=== PATIENT | female | born 1955 | race Caucasian/White ===

== ENCOUNTER 2017-06-03 15:00 | Outpatient (RCR) | payer OTHER, SELFPAY ==
--- NOTE | 2017-04-06 13:56 | HP.PTEVAL ---
Patient's Visit Information VAIBHAV MONTANA is a 61 year old F referred to Physical Therapy by MD PRASHANT Manzo with a diagnosis of RIGHT SHOULDER PAIN/IMPINGMENT. Date of Evaluation: 04/06/17 Physical Therapist: Luann Green - Visit Plan Frequency: 2-3x /Week Duration: 4-6 Weeks Plan: RIGHT SHOULDER US, E-STIM AND STM ALONG WITH ROM, STRETCHING AND STRENGTHENING. POSTURE CORRECTION/STRENGTHENING. 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 WILL BE BABYSITTING GRANDCHILDREN AGES 18 MONTHS TO 6 YEARS ONCE A MONTHS OUT OF STATE FOR ABOUT 24 HOURS. HAS A NEW PUPPY. SWIMS BETWEEN 20 AND 40 LAPS A DAY IN THE SUMMER - ABLE TO DO IT LAST SUMMER. ALSO BIKE RIDES IN THE SUMMER 30 MILES A WEEK IN THE SUMMER. JOINED [employer] - [employer] ROUTINE. ABLE TO DO ALL THIS UNTIL RAKED THE LEAVES ABOUT 6 WEEKS AGO. Disability: NO. Present symptoms: FRONT OF THE RIGHT SHOULDER AND SOMETIMES ON TOP OF THE SHOULDER. PATIENT REPORTS INTERMITTENT BREIF EPISODES OF PAIN, NUMBNESS AND TINGLING THAT RADIATES DOWN THE BICEPS, INTO THE FOREARM AND LITTLE FINGER. RIGHT NECK PAIN INTO SHOULDER BLADE. Present since: ABOUT 3 YEARS AGO THE RIGHT ANTERIOR SHOULDER PAIN STARTED. THE PAIN IN HER RIGHT NECK, SHOULDER BLADE AND ON TOP OF THE SHOULDER WHICH STARTED ABOUT 6 WEEKS AGO. Pain Scale: WORST 5/10, LEAST 0/10. Currently: 3/10 RIGHT ANTERIOR SHOULDER AND SHOULDER BLADE. Commenced as a result of: LIFTED A 6 PACK OF BEER AND SWUNG IT UP TO PUT IT IN A TRUCK AND IT HIT LOWER UNEXPECTEDLY AND DAVID HER ARM. RAKING LEAVES EXCESSIVELY 6 WEEKS AGO IS WHAT CAUSED THE RIGHT NECK AND SHOULDER BLADE PAIN TO START. Symptoms at onset: ON TOP OF THE RIGHT SHOULER AT ONSET 6 WEEKS AGO. PRIOR INCIDENT 3 YEARS AGO PAIN STARTED IN ANTERIOR RIGHT SHOULDER. Worse: HORIZONTAL ABD/ADD, REACHING UP, TWISTING AND TURNING, SLEEPING, PICKING UP SOMETHING HEAVY, USING IT TO PULL HERSELF UP FROM THE FLOOR, REACHING BEHIND HER. INCREASED PAIN IN THE MORNINGS. Better: ABOLISHES WITH TYLONOL, SELF MASSAGE HELPS, COLD PACK. GETS BETTER THE DAY GOES ON. Disturbed sleep: NO. Previous history/Previous treatment: PATIENT REPORTS THAT PRIOR TO 6 WEEKS AGO SHE HAS NOT HAD HER SHOULDER LOOKED AT OR TREATED BY ANYONE. CONCUSSION ABOUT 5 YEARS AGO - A CEILING TILE FELL ON HEAD - MYOFASCIAL SESSIONS X 4-6 FOR TREATMENT. SEVERE TIGHTNESS AND PAIN ABOUT 10 YEARS AGO - A ROUND OF TREATMENTS WITH CHIROPRACTOR. STATES SHE WAS DROPPING THINGS AND THAT LEAD HER TO GET NECK TREATMENT TOO. NECK GOT BETTER. HISTORY OF PAIN IN HEAD AND HEADACHES. DIFFICULTY SWOLLOWING - NO, DIZZINESS - NO, TINNITIS - POSITIVE, NAUSEA - NO. Gait: NORMAL. Accidents: CEILING TILE FELL ON PATIENTS HEAD. Unexplained weight loss: NO. Imaging: X-RAY OF RIGHT SHOULER - DR. GOMEZ - SAID SHOULDER IS OK AND TO CONT IBUPROFEN NEEDED AND FOLLOW UP WITH PT. ARTHRITIC CHANGES. NO NECK IMAGING. PMH: HYSTERECTOMY ABOUT 6 YEARS AGO, HEARD OF HEARING - HEARING AIDS, HERNIA REPAIR, HIGH CHOLESTEROL, OSTEOPENIA. JARED CARPAL TUNNEL SYNDROME. OTHER: EXTREME INCREASE IN AMOUNT OF TYPING FROM OCT 2016 TO FEB 2017. HAS BEEN OFF FOR A MONTH AND NOW BACK TO WORK (WORKING 40 HOURS A WEEK INCLUDING HOME WORK) AND SHOULDERS ARE TIGHTENING UP AGAIN. DID SOME SNOW SHOVELING YESTERDAY. ALSO HELPED MOVE SOME FURNITURE. FEELING TIGHT TODAY. LEFT HAND DOMINANT. - Objective Sitting Posture: POOR - VERY SLOUCHED. Standing Posture: POOR. FORWARD HEAD AND ROUNDED SHOULDERS. NO TORTICOLLIS. Active Correction of posture: BETTER. Other Observations: THIS PATIENT AMBULATES INDEP'LY INTO PT WITH NO GROSS DEVIATIONS NOTED AND NO ASSISTIVE DEVICES. SHE IS PLEASANT AND COOPERATIVE TO WORK WITH. SHE HAS DIFFICULTY HEARING ME AT TIMES AND STATES SHE FORGOT HER HEARING AIDS. Motor deficit: LEFT UE STRENGTH 5/5 WITH MMT EXCEPT ABD WHICH IS 4/5. MMT RIGHT UE: SHOULDER FLEX - 3-/5, ABD 3-/5, IR 4/5, ER - 3-/5, ELBOW FLEX 5/5, ELBOW EXT 5/5. Sensory deficit: JARED UE LIGHT TOUCH IS INTACT AND SYMMETRICAL. ROM deficit: DECREASED RIGHT SHOULDER ROM ALL PLANES: PASSIVE FLEX 145 DEG, ABD 140 DEG, IR 40 DEG, ER 20 DEG. PATIENT HAS PAIN WITH RIGHT SHOULDER ROM TESTING ALL PLANES. Reflexes: JARED UE'S 2/2. Dural Signs: NEGATIVE JARED UE DURAL SIGNS. CERVICAL MVMT LOSS: FLEX - NIL, PRO - NIL, RET - MOD, EXT - MOD, JARED ROT - MIN, JARED SB - MOD. PATIENT HAS C/O RIGHT NECK PAIN WITH RETRACTION AND RIGHT SB ROM TESTING. POSTURAL STRENGTH: POOR. Palpation: TENDERNESS WITH PALPATION AROUND THE RIGHT ACROMIUM AND UPPER ARM LATERALLY. - Goals Goal 1:: DECREASE C/O RIGHT NECK, SHOULDER, FOREARM AND HAND SX'S. Goal Time Frame: 4-6 Weeks Goal 2:: IMPROVE REACHING, PUSHING, PULLING, WORK, LEISURE AND LIFTING FUNCTION. Goal Time Frame: 4-6 Weeks Goal 3:: INDEP HEP Goal Time Frame: 4-6 Weeks - Rehabilitation Potential Rehabilitation Potential: Good - Anticipated Interventions Patient/Client Instruction: Educate patient on: Condition, Plan of Care, Risk Factors, Benefits of Fitness Program For the Purpose of:: To improve self management Therapeutic Exercise to Include: Strength training, Body mechanics, Postural training, Flexibilty training, Scapular Strength/Stabilization For the Purpose of:: To improve ability of physical actions for home/community/work/leisure Manual Therapy Techniques to Include: Soft tissue mobilization For the Purpose of:: To decrease pain, To decrease swelling/inflammation, To increase ROM TENS: Yes IF ES: Yes Cryotherapy (ice pack, ice massage): Yes Thermo therapy (hot pack): Yes Ultrasound (thermal/non thermal): Yes For the Purpose of:: To decrease pain, To decrease swelling/inflammation, To increase ROM Thank you for the opportunity to evaluate your patient. For Medicare and Medicare HMO plans, please review the plan of care and approve it. It will need to be FAXED BACK to us at [phone] for Medicare purposes. Please let me know if there are questions or concerns regarding this plan of care. Physician Signature: Date:
--- NOTE | 2017-05-02 11:57 | HP.PTREVAL_ITS ---
Guzman Siddiqui MD, It has been my pleasure to treat VAIBHAV MONTANA over the last 11 visits for RIGHT SHOULDER PAIN/IMPINGMENT. Please see the progress note below for an update on the physical therapy plan of care! Subjective: PATIENT REPORTS SHE STILL HAS TWINGES OF PAIN IN HER RIGHT ANTERIOR SHOULDER BUT IT HAS IMPROVED. ABOUT 30% IMPROVEMENT. ABLE TO REACH UP BETTER AND FEELS BETTER AFTER PT APPOINTMENTS AND DOING HER HEP. PATIENT REPORTS SHE LIKES THE THERAPY AND IT HAS HELPED BUT SHE WANTS TO MAKE SURE THERE ISN'T SOMETHING ELSE GOING ON IN HER SHOULDER. HASN'T TAKEN HER ANTIINFLAMMATORIES REGULARLY AND HASN'T GONE BACK TO [facility] FOR RE-CHECK. SHE HAS BEEN AVOIDING REACHING OVER-HEAD AND INDEP EX AT [employer]. Objective/Function: PATIENT IS IMPROVING WITH THER-EX AND ACTIVITY MODIFICATIONS BUT SHE STILL HAS SIGNIFICANT PAIN, WEAKNESS AND DECREASED ROM IN THE RIGHT SHOULDER. RECOMMND CONTINUED PT AND PHYSICIAN FOLLOW UP FOR POSSIBLE ORTHO CONSULT AND MRI. UPON EXAM TODAY: Motor deficit: LEFT UE STRENGTH 5/5 WITH MMT EXCEPT ABD WHICH IS 4/5. MMT RIGHT UE: SHOULDER FLEX - 3-/5, ABD 3-/5 , IR 4/5, ER - 3-/5, ELBOW FLEX 5/5, ELBOW EXT 5/5. Sensory deficit: JAERD UE LIGHT TOUCH IS INTACT AND SYMMETRICAL. ROM deficit: DECREASED RIGHT SHOULDER ROM ALL PLANES BUT SOME IMPROVEMENT: PASSIVE FLEX 160 DEG, ABD 140 DEG, IR 40 DEG, ER 28 DEG. PATIENT HAS PAIN WITH RIGHT SHOULDER ROM TESTING ALL PLANES. Reflexes: JARED UE'S 2/2. Dural Signs: NEGATIVE JARED UE DURAL SIGNS. CERVICAL MVMT LOSS: FLEX - NIL, PRO - NIL, RET - MOD, EXT - MOD, JARED ROT - MIN, JARED SB - MOD. PATIENT DENIES PAIN WITH CERVICAL ROM TESTING TODAY. POSTURAL STRENGTH : POOR. Palpation: TENDERNESS WITH PALPATION AROUND THE RIGHT ACROMIUM AND UPPER ARM LATERALLY AND ANTERIOR SHOULDER JOINT. Plan Plan: CONTINUE PT 3X'S A WEEK X 3-4 WEEKS FOR RIGHT SHOULDER US, E-STIM AND STM ALONG WITH ROM, STRETCHING AND STRENGTHENING. POSTURE CORRECTION/STRENGTHENING. Goals Goal 1:: DECREASE C/O RIGHT NECK, SHOULDER, FOREARM AND HAND SX'S. Goal Time Frame: 4-6 Weeks Goal 2:: IMPROVE REACHING, PUSHING, PULLING, WORK, LEISURE AND LIFTING FUNCTION. Goal Time Frame: 4-6 Weeks Goal 3:: INDEP HEP Goal Time Frame: 4-6 Weeks Anticipated Interventions Patient/Client Instruction: Educate patient on: Condition, Plan of Care, Risk Factors, Benefits of Fitness Program For the Purpose of:: To improve self management Therapeutic Exercise to Include: Strength training, Body mechanics, Postural training, Flexibilty training, Scapular Strength/Stabilization For the Purpose of:: To improve ability of physical actions for home/community/ work/leisure Manual Therapy Techniques to Include: Soft tissue mobilization For the Purpose of:: To decrease pain, To decrease swelling/inflammation, To increase ROM TENS: Yes IF ES: Yes Cryotherapy (ice pack, ice massage): Yes Thermo therapy (hot pack): Yes Ultrasound (thermal/non thermal): Yes For the Purpose of:: To decrease pain, To decrease swelling/inflammation, To increase ROM Please do not hesitate to contact me at [phone] by phone or Fax: if you have questions or concerns regarding this new plan of care! Sincerely, Luann Green
--- NOTE | 2017-06-03 15:55 | HP.PTDCSUM_ITS ---
HP - PT D/C Summary It has been my pleasure to treat VAIBHAV MONTANA under orders from Guzman Siddiqui MD, for the diagnosis of RIGHT SHOULDER PAIN/IMPINGMENT for a total of 19 visit(s). Discharge Date: Please see the following information for a summary of their discharge status. - Subjective Subjective: STATES HER SHOULDER IS STILL GETTING BETTER. SHE IS GOING TO GO AHEAD AND SEE DR. VAZ NEXT TUESDAY. NO MRI YET. FEELS SHE MIGHT BENEFIT FROM MORE PT. PATIENT REPORTS HER ROM IS BETTER AND AT NIGHT IT DOESN'T HAVE THAT HORRIBLE ACHING ANYMORE. IT IS MORE FLUID WITH MVMT SHE ALSO REPORTS THERE IS TOTAL ABSENCE OF PAIN AT TIMES. CERTAIN TWISTING MOTIONS AND REACHING BEHIND HER CAUSES PAIN. SHE REPORTS PUTTING COAT ON AND REACHING IN THE BACK SEAT CAUSES THE SHOULDER TO PULL. SCOOPING PUPPY UP ALSO HURTS. SHE REPORTS THE EX'S HELP A LOT. PATIENT REPORTS HER ARM HASN'T FELT THIS GOOD SINCE JANUARY (RAKING LEAVES). - Pain RIGHT SHOULDER Pain Intensity (Out of 10): 1 - Overall Improvement % Improvement: 80 - Objective Objective/Function: PATIENT IS IMPROVING WITH THER-EX AND ACTIVITY MODIFICATIONS BUT SHE STILL HAS PAIN, WEAKNESS AND DECREASED ROM IN THE RIGHT SHOULDER. UPON EXAM TODAY: Motor deficit: LEFT UE STRENGTH 5/5 WITH MMT EXCEPT ABD WHICH IS 4/5. MMT RIGHT UE: SHOULDER FLEX 3-/5, ABD 3-/5, IR 4/5, ER 3-/5, ELBOW FLEX 5/5, ELBOW EXT 5/5. Sensory deficit: JARED UE LIGHT TOUCH IS INTACT AND SYMMETRICAL. ROM deficit: DECREASED RIGHT SHOULDER ROM ALL PLANES BUT SOME IMPROVEMENT: PASSIVE FLEX 170 DEG, ABD 170 DEG, IR 45 DEG, ER 30 DEG. PATIENT HAS PAIN WITH RIGHT SHOULDER ROM TESTING ALL PLANES AT THE END OF THE AVAILABLE RANGE AND ON RETURN ONCE PAIN IS PROVOKED. Reflexes: JARED UE' S 2/2. Dural Signs: NEGATIVE JARED UE DURAL SIGNS. CERVICAL MVMT LOSS: FLEX - NIL, PRO - NIL, RET - MOD, EXT - MOD, JARED ROT - MIN, JARED SB - MOD. PATIENT DENIES PAIN WITH CERVICAL ROM TESTING. Palpation: TENDERNESS WITH PALPATION AROUND THE RIGHT ACROMIUM AND UPPER ARM LATERALLY AND ANTERIOR SHOULDER JOINT. RECOMMEND ORTHO CONSULT AND POSSIBLE MRI. - Goals Goal 1:: DECREASE C/O RIGHT NECK, SHOULDER, FOREARM AND HAND SX'S. Goal Progress: Progressing Goal 2:: IMPROVE REACHING, PUSHING, PULLING, WORK, LEISURE AND LIFTING FUNCTION. Goal Progress: Progressing Goal 3:: INDEP HEP Goal Progress: Progressing - Plan Plan: WILL D/C PATIENT AT THIS TIME TO HEP BUT IF PATIENT IS NOT A SURGICAL CANDIDATE SHE MAY BENEFIT FROM FURTHER PT. PATIENT IS AGREEABLE TO D/C WITH HEP AT THIS TIME. - D/C Information If there are questions or concerns regarding this patient's physical therapy, please feel free to call me at [phone]. Thank you for the referral of this patient. Sincerely, Luann Green
== END 2017-06-03 19:00 | disposition home or self-care (01) ==
LOC: PT 15:00
PROVIDERS: Family Provider Family Medicine; PCP Family Medicine; Visit Provider Family Medicine
DX: M75.41 Impingement syndrome of right shoulder (principal)
CPT/HCPCS: 97035; 97110; 97140; 97162; 97530

== ENCOUNTER → 2017-06-10 18:18 | Outpatient (CLI) | payer OTHER, SELFPAY | PROVIDERS: Family Provider Family Medicine; PCP Family Medicine; Visit Provider Family Medicine | DX: R35.0 Frequency of micturition (principal) | CPT/HCPCS: 87077; 87086; 87088; 87186 ==

== ENCOUNTER → 2017-06-23 10:18 | Outpatient (CLI) | payer OTHER, SELFPAY ==
--- NOTE | 2017-06-23 10:28 | MRI_ITS ---
STUDY: MRI RIGHT SHOULDER REASON FOR EXAM: Female, 61 years old. Shoulder pain x6 months. TECHNIQUE: Standardized fat and water weighted pulse sequences were obtained in all 3 orthogonal planes. COMPARISON: X-RAY RIGHT SHOULDER-March 10, 2017 FINDINGS: There is a focal high-grade bursal surface tear of the footplate insertion of the anterior leading edge of the supraspinatus tendon which may be a full-thickness tear extending to the cortex however there is no retraction of the supraspinatus tendon (axial proton density fat sat series 2, image 10; coronal proton density fat sat series 4, image 14; coronal T2 fat sat series 5, image 14). This small focal tendon tear measures 8 x 7 mm (mediolateral x AP). The remaining anterior, central posterior aspect of the supraspinatus tendon remains intact. There are punctate hypointense structures within the focal supraspinatus tendon tear. The x-ray examination of March 10, 2017 demonstrated jordan-like calcifications. The findings are consistent with a calcific tendinitis associated with a focal tendon tear. There is an associated subacromial bursitis. Normal infraspinatus tendon. Normal subscapularis tendon. Normal teres minor tendon. Normal supraspinatus muscle. Normal infraspinatus muscle. Normal subscapularis muscle. Normal teres minor muscle. Normal glenohumeral articulation. There is a cortical erosion at the insertion of the infraspinatus tendon. Normal biceps labral complex. Normal intracapsular long biceps tendon. Normal labrum. Normal capsulo- ligamentous complex. Normal rotator interval. There is hypertrophic osteoarthritis of the acromioclavicular articulation which is mildly impinging upon the musculotendinous junction of the supraspinatus muscle (coronal T2 fat sat series 5, image 13). There is a Type II morphology (curved), with a neutral orientation. Normal visualized coracohumeral and coracoacromial ligaments. Normal quadrilateral space. Normal axillary space. Normal deltoid muscle. Normal trapezius muscle. MRI/Upper Ext Joint Only(Routine) IMPRESSION: 1. Focal intratendinous calcific tendinitis with a high-grade focal bursal surface tear of the supraspinatus tendon which may represent a non retracted full-thickness tear. See above for discussion. 2. Mild subacromial bursitis. 3. 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 Electronically Signed: Bo Patel DO at 12:19 EDT Tel , Service support ,
== END ==
PROVIDERS: Family Provider Family Medicine; PCP Family Medicine; Visit Provider Orthopaedic Surgery
DX: S43.431A Superior glenoid labrum lesion of right shoulder, initial encounter (principal); X58.XXXA Exposure to other specified factors, initial encounter; M75.41 Impingement syndrome of right shoulder; M75.51 Bursitis of right shoulder; M19.011 Primary osteoarthritis, right shoulder
CPT/HCPCS: 73221

== ENCOUNTER 2017-07-11 07:58 | Outpatient (RCR) | payer OTHER, SELFPAY ==
--- NOTE | 2017-07-11 08:53 | HP.PTEVAL_ITS ---
Patient's Visit Information VAIBHAV MONTANA is a 61 year old F referred to Physical Therapy by Eda Hay DO with a diagnosis of Right shoulder. Date of Evaluation: 07/11/17 Physical Therapist: Cheryl Valero - Visit Plan Frequency: 1x/Week Duration: 4 Weeks Plan: 1x visit for HEP- will follow up in 4 weeks if neeeded - Subjective Subjective: Patient reports that after therapy she was feeling better- but went back to MD- MRI which showed RTC tear, bursitis and tendonitis- gave injections last . MD wants her to get stronger. Worst: 1/10 Agg: cross body, or picking up something heavy. Eases: exercises, Aleve Best: 0/10. Pain is located in the bicipital groove and anterior shoulder. Sometimes it radiates to the neck and the deltoid. Has carpal tunnel and drops things but its not new. No dizziness, vomitting, blurred vision. Sleep: not disturbed- can be stiff in the AM. Left hand dominate. PMHs/Meds: no change since last visit. - Objective Posture: FH, RS. ROM: WFL in all planes of cerivcal and right UE. Palpation: tender along upper trap to the tip of the acromion, and bicipital groove. Strength: Elbow/Wrist/hand: 5/5, Shoulder: flexion: 4-/5, Abd: 4-/5, Extn: 4/5, IR/ER at neutral: 4/5. Empty Can: positive, Impingment: positive - Goals Goal 1:: Patient will be I with HEP and progression Goal Time Frame: 4-6 Weeks - Rehabilitation Potential Physical Therapy Diagnosis: Patient presents with hypomobility- she has decreased strength and muscular endurance Rehabilitation Potential: Good - Anticipated Interventions Patient/Client Instruction: Educate patient on: Benefits of Fitness Program For the Purpose of:: To increase tolerance to activity/condition/position Thank you for the opportunity to evaluate your patient. For Medicare and Medicare HMO plans, please review the plan of care and approve it. It will need to be FAXED BACK to us at [phone] for Medicare purposes. Please let me know if there are questions or concerns regarding this plan of care. Physician Signature: Date:
--- NOTE | 2017-08-15 14:02 | HP.PTDCSUM ---
HP - PT D/C Summary It has been my pleasure to treat VAIBHAV MONTANA under orders from Eda Hay DO, for the diagnosis of Right shoulder for a total of 1 visit(s). Discharge Date: Please see the following information for a summary of their discharge status. - Goals Goal 1:: Patient will be I with HEP and progression - Plan Plan: 1x visit for HEP- will follow up in 4 weeks if neeeded - D/C Information If there are questions or concerns regarding this patient's physical therapy, please feel free to call me at [phone]. Thank you for the referral of this patient. Sincerely, Cheryl Valero
== END 2017-07-11 19:00 | disposition home or self-care (01) ==
LOC: PT 07:58
PROVIDERS: Family Provider Family Medicine; PCP Family Medicine; Visit Provider Orthopaedic Surgery
DX: M75.101 Unspecified rotator cuff tear or rupture of right shoulder, not specified as traumatic (principal); M75.21 Bicipital tendinitis, right shoulder
CPT/HCPCS: 97110; 97161

== ENCOUNTER → 2017-09-27 14:34 | Outpatient (CLI) | payer OTHER, SELFPAY ==
[2017-10-04 09:13] LABS: HPV Reflexed? NOT INDICATED
== END ==
PROVIDERS: Family Provider Family Medicine; PCP Family Medicine; Visit Provider Family Medicine
DX: Z12.4 Encounter for screening for malignant neoplasm of cervix (principal)
CPT/HCPCS: 88175; G0145

== ENCOUNTER → 2017-10-25 07:05 | Outpatient (CLI) | payer OTHER, SELFPAY ==
--- NOTE | 2017-10-25 07:12 | BI_ITS ---
MAMMOGRAPHY - BILATERAL SCREENING REASON FOR EXAM: Female, 62 years old. Routine annual screening examination. PERTINENT HISTORY: Grandmother with breast cancer. TECHNIQUE: Digital bilateral breast suyapa (3D mammographic acquisition) in the CC and MLO projections. 2-D mediolateral oblique (MLO) and craniocaudad (CC) views of both breasts were obtained. CAD: Full Field Digital Mammography with Computer Added Detection was performed. COMPARISON: Comparison is made with prior study dated April 20, 2016 and January 02, 2015. FINDINGS: Breast Composition: The breasts are heterogeneously dense, which may obscure small masses. There are no dominant masses or suspicious calcifications. Stable benign-appearing bilateral axillary lymph nodes. No other significant abnormalities are identified. There has been no significant change since the prior study. BI/SCREENING MAMM (CAD), BILAT IMPRESSION: Stable bilateral screening mammogram. Yearly follow-up mammogram recommended. (A) ASSESSMENT CATEGORY: BIRADS Category 2: Benign. A letter regarding these results will be sent to the patient by the facility within 30 days. Approximately 10% of breast cancers are not detected by mammography. A normal mammogram should not delay biopsy of a clinically suspicious abnormality. [id number] Electronically Signed: Victor Hugo Rogers MD at 10:03 EDT Tel [phone], Service support ,
== END ==
PROVIDERS: Family Provider Family Medicine; PCP Family Medicine; Visit Provider Family Medicine
DX: Z12.31 Encounter for screening mammogram for malignant neoplasm of breast (principal)
CPT/HCPCS: 77063; 77067

== ENCOUNTER 2017-12-05 17:59 | Emergency (ER) | payer OTHER, SELFPAY ==
[2017-12-05 18:00] VITALS: BP 130/79; PULSE 77; RESP 16; TEMP 36.9; O2SAT 94; BMI 35.6
--- NOTE | 2017-12-05 19:00 | RAD_ITS ---
STUDY: X-RAY - PELVIS AND RIGHT HIP REASON FOR EXAM: Female, 62 years old. Right hip tenderness after fall this morning. TECHNIQUE: Radiological exam, hip, unilateral, with pelvis when performed; 2 or 3 views. COMPARISON: None. FINDINGS: There is a non-specific bowel gas pattern. Normal visualized soft tissue structures. There are multiple calcified phleboliths. Normal bilateral iliac wings, sacroiliac joints and visualized sacrum. Normal bilateral superior and inferior pubic rami. Normal pubic symphysis. Normal bilateral ischial tuberosities. Normal visualized right femoral head. Normal right acetabulum. Normal right hip joint. RAD/HIP, UNI W/ Pelvis 2-3 Views IMPRESSION: Normal x-ray examination of the pelvis and right hip. Electronically Signed: Carlos Phillips DO at 19:31 EDT Tel [phone], Service support ,
--- NOTE | 2017-12-05 19:00 | RAD_ITS ---
STUDY: X-RAY - RIGHT KNEE REASON FOR EXAM: Female, 62 years old. Pain and swelling after fall this morning. TECHNIQUE: 3 view(s) of the knee. COMPARISON: None. FINDINGS: Normal visualized distal femur. Normal visualized proximal tibia and fibula. Normal proximal tibiofibular articulation. There is no acute fracture, dislocation or destructive osseous pathology. Normal medial femorotibial compartment. Normal lateral femorotibial compartment. Normal patellofemoral articulation. There is no demonstrated joint effusion. The soft tissue structures are unremarkable. RAD/Knee 3 Views IMPRESSION: Normal x-ray examination of the knee. Electronically Signed: Carlos Phillips DO at 19:30 EDT Tel [phone], Service support ,
--- NOTE | 2017-12-05 20:19 | ED.DCSUM_ITS ---
- ER Visit Summary Date of Service: 12/05/17 Chief Complaint: [Injury right leg] History of Present Illness: The patient is a 62 F [presents the emergency department after sustaining a fall earlier today while walking down a ramp that was wet. Patient states that her legs gave out and she fell injuring her right hip and right knee. Patient states that this is work-related and will be filed under workman's comp. Patient denies strike her head. She denies loss of consciousness. She denies any chest or back pain.] Physical Examination: [HEENT-PERRLA, EOMI. Cranial nerves II through XII grossly intact. TMs clear. Mucous membranes moist. No adenopathy. Cardiovascular-regular rate and rhythm without murmur or ectopy Lungs-clear to auscultation, chest wall stable without crepitus or subcu emphysema Abdomen-normoactive bowel sounds, soft, nontender, no rebound or rigidity, no peritoneal signs. Extremities-intact ?4, normal range of motion, normal pulses, atraumatic]. Right hip-patient has mild tenderness palpation. There is no obvious deformity. No external rotation or shortening of the extremity noted. Right knee-no significant effusion noted she has some superficial abrasions noted. No ecchymosis or bruising noted. Ligamentously stable. Neurovascular intact. Test Results: [X-rays of the right hip and pelvis as well as right knee obtained were negative for fractures.] Emergency Department Course and Treatment: [Patient will be given an Tevin wrap and work restrictions.] Treatment Plan: [Patient will take ibuprofen or Aleve at home and does not want a prescription for anything for pain. She is instructed to use ice to the area. ] Disposition: [Discharged home in stable condition] Impression: [Contusion/sprain right hip and right knee] This note was generated with [employer] dictation software. It may contain incorrect words, spelling, and punctuation that were not noted in review of the chart prior to signing ED Disposition - Plan for ED Patient: Chief Complaint: Lower Extremity Injury Referrals: Marissa Vargas MD [Primary Care Provider] -
--- NOTE | 2017-12-05 20:19 | ED.DEP ---
ED Disposition - Plan for ED Patient: Chief Complaint: Lower Extremity Injury Instructions: ED Sprain Knee, ED Sprain Hip Referrals: Marissa Vargas MD [Primary Care Provider] - [facility] PHYSIC[facility]] - 3-5 Days
[2017-12-05 20:32] VITALS: RESP 18
== END 2017-12-05 20:33 | disposition home or self-care (01) ==
LOC: ED 19:33
PROVIDERS: Emergency Provider Emergency Medicine; Family Provider Family Medicine; PCP Family Medicine
DX: S83.91XA Sprain of unspecified site of right knee, initial encounter (principal); S73.101A Unspecified sprain of right hip, initial encounter; S80.01XA Contusion of right knee, initial encounter; S70.01XA Contusion of right hip, initial encounter; W18.39XA Other fall on same level, initial encounter; Y93.01 Activity, walking, marching and hiking; Y92.9 Unspecified place or not applicable; Y99.0 Civilian activity done for income or pay; E78.00 Pure hypercholesterolemia, unspecified
CPT/HCPCS: 73502; 73562; 99282

== ENCOUNTER 2018-09-25 09:36 | Outpatient (RCR) | payer OTHER, SELFPAY ==
[2018-09-12 09:45] VITALS: BMI 35.6
--- NOTE | 2018-09-25 10:34 | HP.PTEVAL ---
Patient's Visit Information VAIBHAV MONTANA is a 63 year old F referred to Physical Therapy by PUJA Dutton with a diagnosis of RTC Impingment. Date of Evaluation: 09/25/18 Physical Therapist: Cheryl Valero DPT - Visit Plan Frequency: 1x/Week Duration: 2 Months Plan: HEP given for posture- will attempt HEP and follow up in 4-6 weeks - Subjective Findings: 3 weeks ago swimming 20 laps 3-4x a week and lifting bricks and the Right shoulder started hurting her in the biceps area. She went to see Erik the PA who gave her a cortisone injection. Reports that since the cortisone injection she has had a clicking sensation and just something weird. Worst in the last 48 hours 2/10 Best:0/10. Left hand dominate. Has had shoulder problems about 2 years ago and had an injection and PT and felt good. Sleep: if she wakes up it bothers her a little bit when she sleeps on it but it does not wake her up. Describes the pain irritated or aggravated- ache in the biceps- sometimes does radiate to the anterior deltoid but not past the elbow. No N/T in the hands. No neck pain, COLON, blurred vision or dizziness. Has not done exercise for her shoulders since the accident 2 years ago. Had an x-ray but no MRI. 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 PMHx/Meds: no changes since she saw . - Objective Posture: FH, RS, increased kyphosis. Gait: no deviation noted- good arm swing and trunk rotation. Palpation: tender along bicipital groove, upper trap and down the anterior deltoid. ROM: Elbow/Wrist/hand: wnl Shoulder: WNL in all planes pain with end range IR. Strength: Elbow/Wrist/hand: 4+/5, Shoulder: flexion/abd: 4-/5, IR/ER: 4/5 at neutral extn: 4+/5 Scap: fair minus. Special Test: impingment: positive, Empty Can: positive - Goals Goal 1:: Patient will be I with HEP and progression Goal Time Frame: 6-8 Weeks - Rehabilitation Potential Physical Therapy Diagnosis: Patient presents with hypomobility- she has decreased painfree ROM, strength and muscular endurance leading to poor posture and increased pain with ADL's. Rehabilitation Potential: Good - Anticipated Interventions Patient/Client Instruction: Educate patient on: Benefits of Fitness Program Therapeutic Exercise to Include: Strength training, Endurance training, Body mechanics, Postural training, Passive ROM, Active ROM, Scapular Strength/Stabilization For the Purpose of:: To improve muscle performance and motor function Thank you for the opportunity to evaluate your patient. For Medicare and Medicare HMO plans, please review the plan of care and approve it. It will need to be FAXED BACK to us at [phone] for Medicare purposes. For Medicare only, by signing this I certify the plan of care. Please let me know if there are questions or concerns regarding this plan of care. Physician Signature: Date:
--- NOTE | 2018-11-28 14:31 | HP.PTDCNRP_ITS ---
HP - Discharge Summary (1) - Patient Information VAIBHAV MONTANA was seen in my office for initial evaluation on 09/25/18. The following Plan of Care was established for this patient: Initial Frequency: 1x/Week Initial Duration: 2 Months - Anticipated Interventions Patient/Client Instruction: Educate patient on: Benefits of Fitness Program Therapeutic Exercise to Include: Strength training, Endurance training, Body me chanics, Postural training, Passive ROM, Active ROM, Scapular Strength/Stabilization For the Purpose of:: To improve muscle performance and motor function This patient was last seen in our office . Pertinent comments regarding their Physical therapy will appear below: Patient has not attended PT in over 6 weeks and is appropriate for d/c and to return to MD for further evaluation as needed. At this point I will be discontinuing this patient from physical therapy. I would be happy to see this patient again in the future if found appropriate by the physician. Thank you! KARLA AlonzoT
== END 2018-09-25 19:00 | disposition home or self-care (01) ==
LOC: PT 09:36
PROVIDERS: Family Provider Family Medicine; PCP Family Medicine; Referring Provider Physician Assistant; Visit Provider Physician Assistant
DX: M75.21 Bicipital tendinitis, right shoulder (principal); M75.52 Bursitis of left shoulder
CPT/HCPCS: 97110; 97161

== ENCOUNTER → 2018-09-29 10:50 | Outpatient (CLI) | payer OTHER, SELFPAY ==
[2018-09-12 09:45] VITALS: BMI 35.6
[2018-09-29 13:28] LABS: AST(SGOT) 13 U/L (15-37); Alanine Aminotransfer ALT/SGPT 35 U/L (13-56); Anion Gap 9 (5-15); BUN 15 mg/dL (7-18); BUN/Creat Ratio 16.3 RATIO (10-20); Calcium,Total 9.2 mg/dL (8.5-10.1); Chloride 108 mmol/L (98-107); Cholesterol 170 mg/dL (200); Creatinine, Serum 0.92 mg/dL (0.55-1.02); EST Glomerular Filtration Rate 66 mL/min (>60); Est Glom Filt Rate - Afr Amer 79 mL/min (>60); Glucose 109 mg/dL (74-106); High Density Lipoprotein 78 mg/dL; Potassium 4.2 mmol/L (3.5-5.1); Sodium Level 142 mmol/L (136-145); Triglycerides 61 mg/dL; Very Low Density Lipoprotein 12 mg/dL (5-40)
[2018-09-29 13:54] LABS: Hemoglobin A1c 6.5 % (4.2-6.3)
== END ==
PROVIDERS: Family Provider Family Medicine; PCP Family Medicine; Visit Provider Family Medicine
DX: E78.00 Pure hypercholesterolemia, unspecified (principal); Z83.3 Family history of diabetes mellitus
CPT/HCPCS: 36415; 80048; 80061; 83036; 84450; 84460

== ENCOUNTER → 2018-09-29 12:28 | Outpatient (CLI) | payer OTHER, SELFPAY ==
[2018-09-12 09:45] VITALS: BMI 35.6
[2018-10-04 17:14] LABS: HPV Reflexed? NOT INDICATED
== END ==
PROVIDERS: Family Provider Family Medicine; PCP Family Medicine; Referring Provider Family Medicine; Visit Provider Family Medicine
DX: Z12.4 Encounter for screening for malignant neoplasm of cervix (principal)
CPT/HCPCS: 88175; G0145

== ENCOUNTER → 2018-11-01 | Outpatient (CLI) | payer OTHER, SELFPAY ==
[2018-09-12 09:45] VITALS: BMI 35.6
--- NOTE | 2018-11-01 06:58 | BI_ITS ---
MAMMOGRAPHY - BILATERAL SCREENING REASON FOR EXAM: Female, 63 years old. Routine annual screening examination. PERTINENT HISTORY: Grandmother with breast cancer. TECHNIQUE: Digital bilateral breast suyapa (3D mammographic acquisition) in the CC and MLO projections. 2-D mediolateral oblique (MLO) and craniocaudad (CC) views of both breasts were obtained. CAD: Full Field Digital Mammography with Computer Added Detection was performed. COMPARISON: Comparison is made with prior study dated October 25, 2017 and April 20, 2016. FINDINGS: Breast Composition: The breasts are heterogeneously dense, which may obscure small masses. There are no dominant masses or suspicious calcifications. No other significant abnormalities are identified. There has been no significant change since the prior study. BI/SCREENING MAMM (CAD), BILAT IMPRESSION: Stable bilateral screening mammogram. Yearly follow-up mammogram recommended. (A) ASSESSMENT CATEGORY: BIRADS Category 1: Negative. A letter regarding these results will be sent to the patient by the facility within 30 days. Approximately 10% of breast cancers are not detected by mammography. A normal mammogram should not delay biopsy of a clinically suspicious abnormality. [id number] Electronically Signed: Victor Hugo Rogers, at 9:08 EDT , Service support ,
== END | disposition home or self-care (01) ==
LOC: OPBI 07:33
PROVIDERS: Family Provider Family Medicine; PCP Family Medicine; Referring Provider Family Medicine; Visit Provider Family Medicine
DX: Z00.00 Encounter for general adult medical examination without abnormal findings (principal); Z12.31 Encounter for screening mammogram for malignant neoplasm of breast
CPT/HCPCS: 77067

== ENCOUNTER → 2019-04-07 10:26 | Outpatient (CLI) | payer OTHER, SELFPAY ==
[2018-09-12 09:45] VITALS: BMI 35.6
[2019-04-07 11:19] LABS: Glucose 113 mg/dL (74-106)
[2019-04-07 11:22] LABS: Hemoglobin A1c 6.4 % (4.2-6.3)
== END ==
PROVIDERS: Family Provider Family Medicine; PCP Family Medicine; Referring Provider Family Medicine; Visit Provider Family Medicine
DX: R73.09 Other abnormal glucose (principal)
CPT/HCPCS: 36415; 82947; 83036

== ENCOUNTER → 2019-10-22 08:44 | Outpatient (CLI) | payer OTHER, SELFPAY ==
[2018-09-12 09:45] VITALS: BMI 35.6
[2019-10-22 09:58] LABS: Absolute Neutrophil Count 2.7 X10^3/uL (2.0-7.7); Basophil# 0.05 X10^3/uL; Eosinophil# 0.08 X10^3/uL; Eosinophils% 1.6 % (0-5); Hematocrit 46.9 % (37-47); Hemoglobin 14.5 g/dL (12.0-15.0); Lymphocyte % 35.8 % (19-41); Mean Corp Hgb Conc 30.9 g/dL (32-36); Mean Corpuscular Hgb 29.6 pg (27.0-32.0); Mean Corpuscular Volume 95.7 fL (81-99); Mean Platelet Vol. 10.8 fl (6.2-12.0); Monocyte# 0.44 X10^3/uL; Monocyte% 8.7 % (0-10); NRBC Flagged by Analyzer 0 % (0-5); Neutrophil # 2.66 X10^3/uL (2.7-7.7); Neutrophil % 52.9 % (47-70); Platelet Count 238 K/mm3 (150-450); RBC Distribution Width CV 12.9 % (11.6-14.6); RBC Distribution Width SD 45.2 fl (35.1-43.9)
[2019-10-22 10:14] LABS: Hemoglobin A1c 6.2 % (3.8-5.6)
[2019-10-22 10:26] LABS: AST(SGOT) 20 U/L (15-37); Alanine Aminotransfer ALT/SGPT 43 U/L (13-56); Cholesterol 173 mg/dL (200); High Density Lipoprotein 65 mg/dL; Iron 71 ug/dL (50-170); Triglycerides 94 mg/dL; Very Low Density Lipoprotein 19 mg/dL (5-40)
[2019-10-24 16:56] LABS: Lyme Scn Total Ab w/Rflx <0.91 ISR (0.00-0.90)
[2019-10-25 15:21] LABS: HPV Reflexed? NOT INDICATED
[2019-10-26 17:18] LABS: Lyme Ab Screen Interpretation REF LAB
== END ==
PROVIDERS: PCP Family Medicine; Referring Provider Family Medicine; Visit Provider Family Medicine
DX: D64.9 Anemia, unspecified (principal); E78.00 Pure hypercholesterolemia, unspecified; R73.09 Other abnormal glucose; W57.XXXA Bitten or stung by nonvenomous insect and other nonvenomous arthropods, initial encounter; Z12.4 Encounter for screening for malignant neoplasm of cervix
CPT/HCPCS: 36415; 80061; 83036; 83540; 84450; 84460; 85025; 86618; 88175; G0145

== ENCOUNTER → 2019-11-05 07:03 | Outpatient (CLI) | payer OTHER, SELFPAY ==
[2018-09-12 09:45] VITALS: BMI 35.6
--- NOTE | 2019-11-05 07:05 | BI_ITS ---
MAMMOGRAPHY - BILATERAL SCREENING REASON FOR EXAM: Female, 64 years old. Routine annual screening examination. PERTINENT HISTORY: Grandmother with breast cancer. TECHNIQUE: Digital bilateral breast odell (3D mammographic acquisition) in the CC and MLO projections. 2-D mediolateral oblique (MLO) and craniocaudad (CC) views of both breasts were obtained. CAD: Full Field Digital Mammography with Computer Added Detection was performed. COMPARISON: Comparison is made with prior examination dated 11/01/2018 and 10/25/2017. FINDINGS: Breast Composition: The breasts are heterogeneously dense, which may obscure small masses. There are no dominant masses or suspicious calcifications. Stable, small benign-appearing bilateral axillary lymph nodes. No other significant abnormalities are identified. There has been no significant change since the prior study. BI/SCREEN MAMM (CAD) W/ODELL BILAT IMPRESSION: Stable bilateral screening mammogram. Yearly follow-up mammogram recommended. (A) ASSESSMENT CATEGORY: BIRADS Category 2: Benign. A letter regarding these results will be sent to the patient by the facility within 30 days. Approximately 10% of breast cancers are not detected by mammography. A normal mammogram should not delay biopsy of a clinically suspicious abnormality. [id number] Electronically Signed: Victor Hugo Rogers, at 8:02 EDT , Service support ,
== END ==
PROVIDERS: PCP Family Medicine; Referring Provider Family Medicine; Visit Provider Family Medicine
DX: Z12.31 Encounter for screening mammogram for malignant neoplasm of breast (principal)
CPT/HCPCS: 77063; 77067

== ENCOUNTER → 2020-10-22 17:47 | Outpatient (CLI) | payer MEDICARE, SELFPAY ==
[2018-09-12 09:45] VITALS: BMI 35.6
[2020-10-27 21:03] LABS: HPV Reflexed? NOT INDICATED
== END ==
PROVIDERS: PCP Family Medicine; Referring Provider Family Medicine; Visit Provider Family Medicine
DX: Z12.4 Encounter for screening for malignant neoplasm of cervix (principal)
CPT/HCPCS: 88175; G0145

== ENCOUNTER → 2020-11-07 08:21 | Outpatient (CLI) | payer MEDICARE, SELFPAY ==
[2018-09-12 09:45] VITALS: BMI 35.6
--- NOTE | 2020-11-07 08:33 | BI_ITS ---
MAMMOGRAPHY - BILATERAL SCREENING REASON FOR EXAM: Female, 65 years old. Routine annual screening examination. PERTINENT HISTORY: Grandmother with breast cancer. TECHNIQUE: Digital bilateral breast odell (3D mammographic acquisition) in the CC and MLO projections. 2-D mediolateral oblique (MLO) and craniocaudad (CC) views of both breasts were obtained. CAD: Full Field Digital Mammography with Computer Added Detection was performed. COMPARISON: Comparison is made with prior study dated 11/05/2019 and 11/01/2018. FINDINGS: Breast Composition: The breasts are heterogeneously dense, which may obscure small masses. There are no dominant masses or suspicious calcifications. Stable small benign appearing bilateral axillary lymph nodes. No other significant abnormalities are identified. There has been no significant change since the prior study. BI/SCRN MAMM (CAD)W/ODELL BILAT IMPRESSION: Stable bilateral screening mammogram. Yearly follow-up mammogram recommended. (A) ASSESSMENT CATEGORY: BIRADS Category 1: Negative. A letter regarding these results will be sent to the patient by the facility within 30 days. Approximately 10% of breast cancers are not detected by mammography. A normal mammogram should not delay biopsy of a clinically suspicious abnormality. [id number] Electronically Signed: Victor Hugo Rogers MD at 9:51 EDT , Service support ,
== END ==
PROVIDERS: PCP Family Medicine; Referring Provider Family Medicine; Visit Provider Family Medicine
DX: Z12.31 Encounter for screening mammogram for malignant neoplasm of breast (principal); Z80.3 Family history of malignant neoplasm of breast
CPT/HCPCS: 77063; 77067

== ENCOUNTER → 2020-11-07 | Outpatient (CLI) | payer MEDICARE, SELFPAY ==
[2018-09-12 09:45] VITALS: BMI 35.6
== END | disposition home or self-care (01) ==
PROVIDERS: PCP Family Medicine; Referring Provider Family Medicine; Visit Provider Family Medicine
DX: Z20.822 Contact with and (suspected) exposure to COVID-19 (principal); Z12.31 Encounter for screening mammogram for malignant neoplasm of breast; Z80.3 Family history of malignant neoplasm of breast
CPT/HCPCS: 77063; 77067; 87635; U0005; U0003

== ENCOUNTER 2021-04-08 10:01 | Outpatient (CLI) | payer MEDICARE, SELFPAY ==
[2021-04-08 12:40] LABS: AST(SGOT) 15 U/L (15-37); Alanine Aminotransfer ALT/SGPT 44 U/L (13-56); Cholesterol 209 mg/dL (200); High Density Lipoprotein 61 mg/dL; Triglycerides 155 mg/dL; Very Low Density Lipoprotein 31 mg/dL (5-40)
== END 2021-04-08 23:59 | disposition short-term general hospital (02) ==
PROVIDERS: PCP Family Medicine; Referring Provider Family Medicine; Visit Provider Family Medicine
DX: E78.5 Hyperlipidemia, unspecified (principal)
CPT/HCPCS: 36415; 80061; 84450; 84460

== ENCOUNTER 2021-05-05 06:20 | Outpatient (CLI) | payer MEDICARE, SELFPAY ==
--- NOTE | 2021-05-05 08:58 | STRESSREP_ITS ---
Stress Test Report Date: 05-05-2021 Procedure: Exercise tolerance test/imaging study Indications: Chest pain on exertion Consent: Per the patient Procedure: The patient exercised on a Bridger protocol for 7 minutes completing Stage II and 1 minute of Stage III achieving a peak heart rate of 151 bpm (97% predicted maximal heart rate) with a peak blood pressure 164/78 mmHg and a peak MET capacity of 10 METs. The baseline ECG demonstrated normal sinus rhythm. The peak exercise ECG demonstrated no obvious ECG changes. There was a rare PVC during exercise and recovery. The functional capacity was considered good. There was no complaint of chest discomfort during exercise or recovery. The examination was discontinued secondary to dyspnea. Impression: 1. Technically adequate (percent predicted maximal heart rate greater than 85%) exercise tolerance test 2. Peak exercise ECG with no obvious ECG changes 3. There was a rare PVC during exercise and recovery 4. Nuclear images pending Myocardial perfusion imaging study: Technique: The patient was injected with 11.3 mCi of technetium 99m Cardiolite and subsequently rest SPECT Cardiolite nuclear imaging was obtained in the horizontal long, vertical long, and short axis views. The patient exercised on a Bridger protocol for 7 minutes completing Stage II and 1 minute of Stage III achieving a peak heart rate of 151 bpm (97% predicted maximal heart rate) with a peak blood pressure 164/78 mmHg and a peak MET capacity of 10 METs. The patient was injected with 34.1 mCi of technetium 99m Cardiolite and subsequently stress SPECT Cardiolite nuclear imaging was obtained in the horizontal long, vertical long, and short axis views. A gated Cardiolite study at peak stress was obtained. Interpretation: Rest and stress SPECT Cardiolite nuclear imaging status post realignment, normalization, and attenuation correction, demonstrates the appearance of relative uniform tracer uptake and myocardial perfusion appearing within normal limits. There is end systolic thickening and brightening. The gated Cardiolite study demonstrates myocardial thickening and inward wall motion. The reported LVEF is 73%. Impression: 1. Rest and stress SPECT Cardiolite nuclear imaging demonstrate relative uniform tracer uptake and myocardial perfusion appearing within normal limits. 2. The gated Cardiolite study reports an LVEF of 73%. This note was generated with [employer] software. It may contain incorrect words, spelling, and punctuation that were not noted in checking the note before signing.
== END 2021-05-05 23:59 | disposition home or self-care (01) ==
PROVIDERS: PCP Family Medicine; Referring Provider Family Medicine; Visit Provider Family Medicine
DX: R07.9 Chest pain, unspecified (principal)
CPT/HCPCS: 78452; 93017; A9500; A4216

== ENCOUNTER → 2021-11-10 | Outpatient (CLI) | payer MEDICARE, SELFPAY ==
--- NOTE | 2021-11-10 12:10 | BI_ITS ---
MAMMOGRAPHY - BILATERAL SCREENING 3-D TOMOSYNTHESIS REASON FOR EXAM: Female, 66 years old. SCREENING PERTINENT HISTORY: No significant family history. TECHNIQUE: 2-D mammograms and 3-D Tomosynthesis of the breast (s) were performed. CAD was performed. COMPARISON: 11/07/2020 FINDINGS: The breast composition is heterogeneously dense that can obscure small breast masses. Scattered benign calcifications are seen. No dense spiculated masses or suspicious microcalcifications are identified. No architectural distortion is identified. There is no skin thickening or retraction. There has been no significant change since the prior study. BI/SCRN MAMM (CAD)W/ODELL BILAT IMPRESSION: No mammographic signs of malignancy. Routine yearly mammograms recommended. ASSESSMENT CATEGORY: BIRADS Category 1: Negative. A letter regarding these results will be sent to the patient by the facility within 30 days. FOLLOW UP RECOMMENDATION: Yearly follow up mammogram recommended. (A) Approximately 10% of breast cancers are not detected by mammography. A normal mammogram should not delay biopsy of a clinically suspicious abnormality. Electronically Signed: Francisco Javier Glass MD at 16:40 EDT ,
== END | disposition home or self-care (01) ==
LOC: OPBI 12:08
PROVIDERS: PCP Family Medicine; Referring Provider Family Medicine; Visit Provider Family Medicine
DX: Z12.31 Encounter for screening mammogram for malignant neoplasm of breast (principal)
CPT/HCPCS: 77063; 77067

== ENCOUNTER → 2022-04-22 | Outpatient (CLI) | payer MEDICARE, SELFPAY | END | disposition home or self-care (01) | PROVIDERS: PCP Family Medicine; Referring Provider Registered Nurse; Visit Provider Registered Nurse | DX: N89.8 Other specified noninflammatory disorders of vagina (principal) | CPT/HCPCS: 87070; 87077; 87186; 87205 ==

== ENCOUNTER → 2022-05-25 | Outpatient (CLI) | payer MEDICARE, SELFPAY ==
[2022-05-25 18:28] LABS: ALB/GLOB Ratio 1.2 RATIO (0.9-2.4); AST(SGOT) 12 U/L (15-37); Alanine Aminotransfer ALT/SGPT 36 U/L (13-56); Albumin, Serum 3.7 g/dL (3.2-5.0); Alkaline Phosphatase 64 U/L (45-117); Anion Gap 7 (5-15); BUN 12 mg/dL (7-18); BUN/Creat Ratio 16.1 RATIO (10-20); Chloride 106 mmol/L (98-107); Creatinine, Serum 0.75 mg/dL (0.55-1.02); EST Glomerular Filtration Rate 82 mL/min (>60); Est Glom Filt Rate - Afr Amer 100 mL/min (>60); Globulin 3.1 g/dL (2.2-4.2); Glucose 116 mg/dL (74-106); Potassium 3.8 mmol/L (3.5-5.1); Protein, Total 6.8 g/dL (6.4-8.2); Sodium Level 140 mmol/L (136-145); Thyroid Stim Hormone (TSH) 1.56 uIU/mL (0.358-3.74)
[2022-05-25 18:31] LABS: Erythrocyte Sedimentation Rate 17 mm/hr (0-30)
[2022-05-25 18:33] LABS: Absolute Lymphocyte Count 2.69 X10^3/uL (0.83-4.51); Absolute Neutrophil Count 3.2 X10^3/uL (2.0-7.7); Basophil# 0.04 X10^3/uL; Basophil% 0.6 % (0-1); Eosinophil# 0.09 X10^3/uL; Eosinophils% 1.4 % (0-5); Hematocrit 45.5 % (37-47); Hemoglobin 14.3 g/dL (12.0-15.0); Lymphocyte # 2.69 X10^3/ul (0.83-4.51); Lymphocyte % 41.7 % (19-41); Mean Corp Hgb Conc 31.4 g/dL (32-36); Mean Corpuscular Hgb 29.6 pg (27.0-32.0); Mean Corpuscular Volume 94.2 fL (81-99); Mean Platelet Vol. 11.4 fl (6.2-12.0); Monocyte# 0.38 X10^3/uL; Monocyte% 5.9 % (0-10); NRBC Flagged by Analyzer 0 % (0-5); Neutrophil # 3.24 X10^3/uL (2.7-7.7); Neutrophil % 50.2 % (47-70); Platelet Count 244 K/mm3 (150-450); RBC Distribution Width CV 12.3 % (11.6-14.6); RBC Distribution Width SD 42.7 fl (35.1-43.9); Red Blood Count 4.83 M/mm3 (4.2-5.4); White Blood Count 6.5 K/mm3 (4.4-11.0)
[2022-05-27 18:51] LABS: EBV Acute VCA IgM < 36.0 U/mL (0.0-35.9); EBV-VCA IgG > 600.0 U/mL (0.0-17.9)
== END | disposition home or self-care (01) ==
LOC: MFPLAB 16:47
PROVIDERS: PCP Family Medicine; Referring Provider Family Medicine; Visit Provider Family Medicine
DX: R53.81 Other malaise (principal); R68.89 Other general symptoms and signs
CPT/HCPCS: 36415; 80053; 84443; 85025; 85652; 86664; 86665

== ENCOUNTER → 2022-05-27 | Outpatient (CLI) | payer MEDICARE, SELFPAY ==
[2022-05-27 13:57] LABS: Hemoglobin A1c 6.3 % (3.8-5.6)
== END | disposition home or self-care (01) ==
LOC: LAB 12:37
PROVIDERS: PCP Family Medicine; Referring Provider Registered Nurse; Visit Provider Registered Nurse
DX: R53.81 Other malaise (principal); R68.89 Other general symptoms and signs; R73.09 Other abnormal glucose; B37.2 Candidiasis of skin and nail
CPT/HCPCS: 36415; 83036

== ENCOUNTER → 2022-09-02 | Outpatient (CLI) | payer MEDICARE, SELFPAY ==
--- NOTE | 2022-09-02 | IMM_PTH ---
PATIENT: VAIBHAV MONTANA LOC: LAB U#:[id number] AGE/SX: 67/F ROOM: RE09/02/[address]: Dr. Mague Ragsdale DO : 1955 BED: DIS: 09/02/2022 SPEC #: [id number] RECD: 09/06/22 13:08 STATUS: SOLANGE REElvi #: [id number] JORGE: 09/02/22 00:[address]: Mague Ragsdale DEPT: IMMUNOHISTOCHEMISTRY RECD BY: Debbie Almonte ENTERED: 09/06/22 13:09 SP TYPE: IMMUNO OTHR DR: Dr. Marissa Vargas MD Tissues: Vulva, NOS Procedures: p16 (initial) KI-67 (add) PHYSICIAN & INSTITUTION [place] [id number] SPECIMEN INFORMATION: Tissue Source: Vulva Clinical Info: Vaginal itching Specimen Number: [id number] CPT code: 83953, 72758 METHODOLOGY: Deparaffinized sections of prefer/formalin-fixed tissue or PAP/DQ stained slides are incubated with monoclonal/polyclonal antibodies/oligonucleotide probes. Localization is made via biotin free immunoperoxidase method. Appropriate controls are performed and reacted as expected. Results on target cell population are indicated in the following table: RESULTS: ANTIBODY / CLONE RESULT P16 (E6H4) negative Ki-67 (30-9) positive, very low These tests were developed and their performance characteristics determined by [facility]. They may not have been cleared or approved by the U.S. Food and Drug Administration. The FDA has determined that such clearance or approval is not necessary. The above immunohistochemical/dualISH markers are ordered and reviewed by the Pathologist. INTERPRETATION: Vulva, biopsy: Negative for dysplasia. See comment. PATRICIA:yana 09/07/2022 Comment: Focal minimal changes suspicious for HPV cytopathic effects are noted.
--- NOTE | 2022-09-02 | VUL_PTH ---
PATIENT: VAIBHAV MONTANA LOC: LAB U#:[id number] AGE/SX: 67/F ROOM: RE09/02/[address]: Dr. Mague Ragsdale DO : 1955 BED: DIS: 09/02/2022 SPEC #: [id number] RECD: 09/02/22 14:05 STATUS: SOLANGE RANDOLPH #: [id number] JORGE: 09/02/22 00:[address]: Mague Ragsdale DEPT: SURGICAL PATHOLOGY RECD BY: Jessika Babcock ENTERED: 09/03/22 07:23 SP TYPE: VULVA BX OTHR DR: Dr. Marissa Vargas MD Tissues: Vulva, NOS Procedures: Special Stain Group I Surgery Specimen Level IV AFB Stain (control) HEADER OPERATION: Vulva biopsy PRE-OP DIAGNOSIS: Vaginal itching TISSUE SUBMITTED: Vulva MICROSCOPIC DIAGNOSIS Vulva, biopsy: A piece of skin with chronic inflammation. Negative for dysplasia. See comment. PATRICIA:yana 09/06/2022 COMMENT Focal minimal changes suspicious for HPV cytopathic effects also noted. Immunohistochemistry ([id number]) for surrogate HPV marker (p16) supports the above diagnosis. Special stain for fungi is negative for organisms; matched control is appropriate. MICROSCOPIC DESCRIPTION Slides are reviewed. GROSS DESCRIPTION Received is one container labeled with the patient's name and not further designated. The specimen consists of a piece of dennison-brown skin measuring 0.2 x 0.2 x 0.1 cm. The specimen is totally submitted in one cassette. / PATRICIA:yana 09/03/2022 TC:3 CPT: 92747, 91844
[2022-09-02 14:01] LABS: Hemoglobin A1c 6.1 % (3.8-5.6)
== END | disposition home or self-care (01) ==
PROVIDERS: PCP Family Medicine; Referring Provider Obstetrics & Gynecology; Visit Provider Obstetrics & Gynecology
DX: R73.09 Other abnormal glucose (principal)
CPT/HCPCS: 36415; 83036; 88305; 88312; 88341; 88342

== ENCOUNTER → 2022-09-15 | Outpatient (CLI) | payer MEDICARE, SELFPAY ==
[2022-09-15 17:48] LABS: Absolute Neutrophil Count 3.7 X10^3/uL (2.0-7.7); Basophil# 0.05 X10^3/uL; Basophil% 0.8 % (0-1); Eosinophil# 0.08 X10^3/uL; Eosinophils% 1.2 % (0-5); Hematocrit 44.2 % (37-47); Hemoglobin 13.9 g/dL (12.0-15.0); Lymphocyte % 34.3 % (19-41); Mean Corp Hgb Conc 31.4 g/dL (32-36); Mean Corpuscular Volume 95.3 fL (81-99); Mean Platelet Vol. 10.9 fl (6.2-12.0); Monocyte# 0.35 X10^3/uL; Monocyte% 5.5 % (0-10); NRBC Flagged by Analyzer 0 % (0-5); Neutrophil # 3.73 X10^3/uL (2.7-7.7); Platelet Count 238 K/mm3 (150-450); RBC Distribution Width CV 12.8 % (11.6-14.6); RBC Distribution Width SD 44.7 fl (35.1-43.9); Red Blood Count 4.64 M/mm3 (4.2-5.4); White Blood Count 6.4 K/mm3 (4.4-11.0)
== END | disposition home or self-care (01) ==
LOC: MFPLAB 14:19
PROVIDERS: PCP Family Medicine; Visit Provider Family Medicine
DX: R53.81 Other malaise (principal)
CPT/HCPCS: 36415; 85025

== ENCOUNTER → 2022-11-11 | Outpatient (CLI) | payer MEDICARE, SELFPAY ==
--- NOTE | 2022-11-11 07:46 | BI_ITS ---
MAMMOGRAPHY - BILATERAL SCREENING REASON FOR EXAM: Female, 67 years old. Routine annual screening examination. PERTINENT HISTORY: Grandmother with breast cancer. TECHNIQUE: Digital bilateral breast odell (3D mammographic acquisition) in the CC and MLO projections. 2-D mediolateral oblique (MLO) and craniocaudad (CC) views of both breasts were obtained. CAD: Full Field Digital Mammography with Computer Added Detection was performed. COMPARISON: Comparison is made with prior examination November 10, 2021 and November 07, 2020. FINDINGS: Breast Composition: The breasts are heterogeneously dense, which may obscure small masses. There are no dominant masses or suspicious calcifications. Stable small benign-appearing bilateral axillary lymph nodes. No other significant abnormalities are identified. There has been no significant change since the prior study. BI/SCRN MAMM (CAD)W/ODELL BILAT IMPRESSION: Stable bilateral screening mammogram. Yearly follow-up mammogram recommended. (A) ASSESSMENT CATEGORY: BIRADS Category 2: Benign. A letter regarding these results will be sent to the patient by the facility within 30 days. Approximately 10% of breast cancers are not detected by mammography. A normal mammogram should not delay biopsy of a clinically suspicious abnormality. [id number] Electronically Signed: Victor Hugo Rogers MD at 9:00 EDT ,
== END | disposition home or self-care (01) ==
LOC: OPBI 07:46
PROVIDERS: PCP Family Medicine; Referring Provider Family Medicine; Visit Provider Family Medicine
DX: Z12.31 Encounter for screening mammogram for malignant neoplasm of breast (principal)
CPT/HCPCS: 77063; 77067

== ENCOUNTER → 2023-07-27 | Outpatient (CLI) | payer MEDICARE, SELFPAY | END | disposition home or self-care (01) | LOC: LABSPEC 11:52 | PROVIDERS: PCP Family Medicine; Referring Provider Nurse Practitioner Women's Health; Visit Provider Nurse Practitioner Women's Health | DX: N89.8 Other specified noninflammatory disorders of vagina (principal) | CPT/HCPCS: 87070; 87205 ==

== ENCOUNTER → 2023-08-17 | Outpatient (CLI) | payer MEDICARE, SELFPAY ==
[2023-08-19 22:56] LABS: HPV Reflexed? NOT INDICATED
== END | disposition home or self-care (01) ==
PROVIDERS: PCP Family Medicine; Referring Provider Nurse Practitioner Women's Health; Visit Provider Nurse Practitioner Women's Health
DX: Z12.4 Encounter for screening for malignant neoplasm of cervix (principal); B97.7 Papillomavirus as the cause of diseases classified elsewhere
CPT/HCPCS: 87624; 88175; G0145

== ENCOUNTER → 2023-11-07 | Outpatient (CLI) | payer MEDICARE, SELFPAY ==
[2023-11-07 12:09] LABS: Hemoglobin A1c 6.2 % (3.8-5.6)
[2023-11-07 12:16] LABS: Protein, Urine (Random) 6.3 mg/dL (<11.9); Protein:Creat Ratio 191 mg/g CRE (0-200)
[2023-11-07 12:37] LABS: AST(SGOT) 15 U/L (15-37); Alanine Aminotransfer ALT/SGPT 31 U/L (13-56); Albumin, Serum 3.6 g/dL (3.2-5.0); Alkaline Phosphatase 71 U/L (45-117); Anion Gap 4 (5-15); BUN 16 mg/dL (7-18); BUN/Creat Ratio 19.8 RATIO (10-20); Bilirubin, Direct 0.09 mg/dL (0.00-0.30); Calcium,Total 9.1 mg/dL (8.5-10.1); Chloride 107 mmol/L (98-107); Cholesterol 178 mg/dL (200); Creatinine, Serum 0.81 mg/dL (0.55-1.02); EST Glomerular Filtration Rate 75 mL/min (>60); Est Glom Filt Rate - Afr Amer 91 mL/min (>60); Globulin 3.2 g/dL (2.2-4.2); Glucose 154 mg/dL (74-106); High Density Lipoprotein 58 mg/dL; Potassium 4.2 mmol/L (3.5-5.1); Protein, Total 6.8 g/dL (6.4-8.2); Sodium Level 138 mmol/L (136-145); Triglycerides 176 mg/dL; Very Low Density Lipoprotein 35 mg/dL (5-40)
== END | disposition home or self-care (01) ==
LOC: MFPLAB 10:47
PROVIDERS: PCP Family Medicine; Visit Provider Family Medicine
DX: E78.00 Pure hypercholesterolemia, unspecified (principal); E11.9 Type 2 diabetes mellitus without complications
CPT/HCPCS: 36415; 80048; 80061; 80076; 82570; 83036; 84156

== ENCOUNTER → 2023-11-24 | Outpatient (CLI) | payer MEDICARE, SELFPAY ==
--- NOTE | 2023-11-24 14:40 | BD_ITS ---
STUDY: DUAL ENERGY X-RAY ABSORPTIOMETRY / DXA REASON FOR EXAM: Female, 68 years old. V76.12ScreeningBONE DENSITY REASON FOR EXAM TECHNIQUE: Bone Mineral Density (BMD) measurements of lumbar spine and bilateral hips were obtained. COMPARISON: Comparison is made with prior study dated March 27, 2015. FINDINGS: Lumbar Spine (L1-L4): g/cm2 (0.948) / T-score (-0.9) / Z-score (1.1) Findings are suggestive of normal bone density with a low fracture risk. Left Femur Total: g/cm2 (0.936) / T-score (0.0) / Z-score (1.4) Left Femoral Neck: g/cm2 (0.738) / T-score (-1.0) / Z-score (0.7) Right Femur Total: g/cm2 (0.920) / T-score (-0.2) / Z-score (1.2) Right Femoral Neck: g/cm2 (0.706) / T-score (-1.3) / Z-score (0.4) The T-Scores on the most recent prior examination were: Lumbar Spine (L1-L4): There has been improvement of bone density since the previous examination. Left Femur Total: which represents an improvement of 6.4%. Right Femur Total: which represents an improvement of 4.3%. BD/Dexa Bone Density Study IMPRESSION: The patient is considered osteopenic as outlined below according to World Smith Organization (WHO) criteria with a low fracture risk. There has been improvement of bone density since the previous examination. Reference Information: The T-score is the number of standard deviations above or below the standard which is normal for young adults at their peak bone mineral density. The World Health Organization (WHO) interprets the T-scores as follows: Above -1 Normal bone density Between -1 and -2.5 Osteopenia Equal to / or below -2.5 Osteoporosis As a practical clinical guideline, osteopenia may be graded as follows: Mild -1 through -1.5 Moderate -1.6 through -2.0 Severe -2.1 through -2.4 The Z-score is the number of standard deviations above or below age-matched controls. A Z-score of less than -1.5 would be considered abnormal. References: 1. NIH Osteoporosis and Related Bone Diseases www osteo.org 2. International Society for Clinical Densitometry www iscd.org 3. National Osteoporosis Foundation www nof.org Electronically Signed: Victor Hugo Rogers MD at 11:12 EDT ,
--- NOTE | 2023-11-24 15:01 | BI_ITS ---
MAMMOGRAPHY - BILATERAL SCREENING REASON FOR EXAM: Female, 68 years old. Routine annual screening examination. PERTINENT HISTORY: Grandmother with breast cancer. TECHNIQUE: Digital bilateral breast odell (3D mammographic acquisition) in the CC and MLO projections. 2-D mediolateral oblique (MLO) and craniocaudad (CC) views of both breasts were obtained. CAD: Full Field Digital Mammography with Computer Added Detection was performed. COMPARISON: Comparison is made with prior study dated November 11, 2022 and November 10, 2021. FINDINGS: Breast Composition: The breasts are heterogeneously dense, which may obscure small masses. There are no dominant masses or suspicious calcifications. Stable small benign-appearing bilateral axillary lymph nodes. No other significant abnormalities are identified. There has been no significant change since the prior study. BI/SCRN MAMM (CAD)W/ODELL BILAT IMPRESSION: Stable bilateral screening mammogram. Yearly follow-up mammogram recommended. (A) ASSESSMENT CATEGORY: BIRADS Category 2: Benign. A letter regarding these results will be sent to the patient by the facility within 30 days. Approximately 10% of breast cancers are not detected by mammography. A normal mammogram should not delay biopsy of a clinically suspicious abnormality. [id number] Electronically Signed: Victor Hugo Rogers MD at 8:56 EDT ,
== END | disposition home or self-care (01) ==
PROVIDERS: PCP Family Medicine; Referring Provider Family Medicine; Visit Provider Family Medicine
DX: Z12.31 Encounter for screening mammogram for malignant neoplasm of breast (principal); N95.9 Unspecified menopausal and perimenopausal disorder
CPT/HCPCS: 77063; 77067; 77080

== ENCOUNTER → 2024-05-07 | Outpatient (CLI) | payer MEDICARE, SELFPAY ==
[2024-05-07 13:02] LABS: AST(SGOT) 16 U/L (15-37); Alanine Aminotransfer ALT/SGPT 40 U/L (13-56); Alkaline Phosphatase 71 U/L (45-117); Anion Gap 7 (5-15); BUN 11 mg/dL (7-18); BUN/Creat Ratio 13.9 RATIO (10-20); Bilirubin, Direct 0.14 mg/dL (0.00-0.30); Calcium,Total 9.1 mg/dL (8.5-10.1); Chloride 105 mmol/L (98-107); Cholesterol 165 mg/dL (200); Creatinine, Serum 0.79 mg/dL (0.55-1.02); EST Glomerular Filtration Rate 77 mL/min (>60); Est Glom Filt Rate - Afr Amer 93 mL/min (>60); Globulin 3.1 g/dL (2.2-4.2); Glucose 110 mg/dL (74-106); High Density Lipoprotein 59 mg/dL; Potassium 4.6 mmol/L (3.5-5.1); Protein, Total 7.1 g/dL (6.4-8.2); Sodium Level 136 mmol/L (136-145); Triglycerides 146 mg/dL; Very Low Density Lipoprotein 29 mg/dL (5-40)
[2024-05-07 13:09] LABS: Protein, Urine (Random) < 6.0 mg/dL (<11.9)
== END | disposition home or self-care (01) ==
LOC: MFPLAB 10:01
PROVIDERS: PCP Family Medicine; Referring Provider Family Medicine; Visit Provider Family Medicine
DX: E11.69 Type 2 diabetes mellitus with other specified complication (principal)
CPT/HCPCS: 36415; 80048; 80061; 80076; 82570; 84156; 84443

== ENCOUNTER → 2024-08-27 | Outpatient (CLI) | payer MEDICARE, SELFPAY ==
[2024-08-27 18:02] LABS: Absolute Lymphocyte Count 2.45 X10^3/uL (0.83-4.51); Absolute Neutrophil Count 4.2 X10^3/uL (2.0-7.7); Basophil# 0.06 X10^3/uL; Basophil% 0.8 % (0-1); Eosinophil# 0.07 X10^3/uL; Hematocrit 43.2 % (37-47); Hemoglobin 13.7 g/dL (12.0-15.0); Lymphocyte # 2.45 X10^3/ul (0.83-4.51); Lymphocyte % 33.7 % (19-41); Mean Corp Hgb Conc 31.7 g/dL (32-36); Mean Corpuscular Hgb 30.1 pg (27.0-32.0); Mean Corpuscular Volume 94.9 fL (81-99); Mean Platelet Vol. 11.9 fl (6.2-12.0); Monocyte# 0.46 X10^3/uL; Monocyte% 6.3 % (0-10); NRBC Flagged by Analyzer 0 % (0-5); Neutrophil # 4.23 X10^3/uL (2.7-7.7); Neutrophil % 58.1 % (47-70); Platelet Count 242 K/mm3 (150-450); RBC Distribution Width CV 13.1 % (11.6-14.6); RBC Distribution Width SD 45.2 fl (35.1-43.9); Red Blood Count 4.55 M/mm3 (4.2-5.4); White Blood Count 7.3 K/mm3 (4.4-11.0)
== END | disposition home or self-care (01) ==
LOC: MTLAB 15:57
PROVIDERS: PCP Family Medicine; Referring Provider Nurse Practitioner Family; Visit Provider Nurse Practitioner Family
DX: R53.83 Other fatigue (principal)
CPT/HCPCS: 36415; 84443; 85025

== ENCOUNTER → 2024-08-30 | Outpatient (CLI) | payer MEDICARE, SELFPAY ==
--- NOTE | 2024-08-30 12:52 | US_ITS ---
PROCEDURE: THYROID 08/30/2024 REASON FOR EXAM: GOITER TECHNIQUE: High-frequency thyroid ultrasound, including grayscale and color-flow images. REFERENCE LINKS: TI-RADS Chart: [email or web address] TI-RADS Calculator Tool with Reference Images: [email or web address]/ COMPARISON: None FINDINGS: Right thyroid lobe size: 3.7 x 1.3 x 1.5 cm Left thyroid lobe size: 3.6 x 1.4 x 1.4 cm Isthmus: 0.3 cm Background parenchymal echotexture is homogeneous. Nodules: 1. Lobe: Left, Location: Upper, Size: 1.0 x 0.6 x 0.8 cm, Stability: N/A Composition: Solid or almost completely solid (+2) Echogenicity: Hypoechoic (+2) Margin: Smooth (+0) Shape: Wider than tall (+0) Echogenic Foci: Punctate echogenic foci (microcalcs) (+3) TI-RADS: 5 2. Lobe: Isthmus, Location: N/a, Size: 0.4 x 0.2 x 0.4 cm cm, Stability: N/A Composition: Cystic or mostly cystic (+0) Echogenicity: Anechoic (+0) Margin: Smooth (+0) Shape: Wider than tall (+0) Echogenic Foci: None (+0) TI-RADS: 1 US/Thyroid IMPRESSION: Nodule in the left thyroid lobe measuring 1.0 cm is highly suspicious, and FNA is recommended per ACR TI-RADS guidelines. Reading Location: [id number]
--- OUTSIDE RECORDS SUMMARY | 2024-08-30 21:28 | XMS RPT_ITS | CCD ---
Author Organization [facility] Care Team Providers Care Cable Tester Name Role Phone Dr. Marissa Vargas Primary Care Provider [phone] Marissa Vargas Referring Provider [phone] TEODORO Kc Attending Provider Dr. Marissa Vargas Primary Care Provider Dr. Marissa Vargas Referring Provider [phone] TE[place] Kc Attending Provider Dr. Mague Ragsdale Attending Provider Dr. Marissa Vargas Primary Care Provider Dr. Marissa Vargas Referring Provider [phone] Marissa Vargas Primary Care Provider Dr. Marissa Vargas Referring Provider [phone] TEODORO Kc Attending Provider Anna CAR DISPATCHER, CAR DISPATCHER-C Ruth Attending Provider Jolliff, Marissa S Referring Unavailable Jolliff, Marissa S Primary Care Unavailable Anna CAR DISPATCHER, Ruth Attending Unavailable Jolliff, Marissa S Attending Unavailable Jolliff, Marissa S Referring Unavailable Jolliff, Marissa S Primary Care Unavailable Jolliff, Marissa S Referring Unavailable Jolliff, Marissa S Primary Care Unavailable Jolliff, Marissa S Attending Unavailable Jolliff, Marissa S Attending Unavailable Jolliff, Marissa S Primary Care Unavailable Isamar CAR DISPATCHER, Cheryl Primary Care Unavailable Isamar CAR DISPATCHER, Cheryl Attending Unavailable Isamar CAR DISPATCHER, Cheryl Referring Unavailable Jolliff, Marissa S Primary Care Unavailable Isamar CAR DISPATCHER, Cheryl Attending Unavailable Cheryl Penn NP Referring Unavailable Medications Current Medications Medication Drug Class(es) Dates Sig (Normalized) Sig (Original) atorvastatin 20 mg oral tablet (7 sources) HMG-CoA Reductase Inhibitor Start: 06-10-2017 take 20 mg by mouth once daily Atorvastatin Active 20 MG PO daily June 10, 2017 12:00am clobetasol propionate 0.0005 mg/mg topical ointment (5 sources) Corticosteroid Start: 09-08-2022 End: 10-21-2022 Clobetasol Active 1 APPLIC TOPICAL every day in the morning and in the evening 45 84 October 21, 2022 1:41pm meloxicam 15 mg oral tablet (7 sources) Nonsteroidal Anti-inflammatory Drug Start: 09-12-2018 take 15 mg by mouth once daily Meloxicam Active 15 MG PO DAILY September 12, 2018 12:00am nystatin [id number] unt/ml topical cream (6 sources) Polyene Antifungal Start: 03-11-2023 End: 07-04-2023 Nystatin Active 1 APPLIC TOPICAL TWICE A DAY July 04, 2023 10:49am apply topically twice daily for 10 days Start: 09-02-2022 End: 03-11-2023 Nystatin Discontinued 1 APPL IC TOPICAL DAILY September 02, 2022 12:00am March 11, 2023 10:24am Completed/Discontinued Medications Medication Drug Class(es) Dates Sig (Normalized) Sig (Original) terconazole 8 mg/ml vaginal cream (11 sources) Azole Antifungal Start: 05-27-2022 End: 09-02-2022 Terconazole Discontinued 1 APPFUL VAGINAL AT BEDTIME 14 10May 27, 2022 1:00am September 02, 2022 11:17am Start: 04-22-2022 End: 04-29-2022 Terconazole Discontinued 5 G M VAGINAL AT BEDTIME 14 10April 22, 2022 1:00am April 29, 2022 1:06am apply externally to affected area Problems Active Problems Problem Classification Problem Date Documented Date Episodic/Chronic Diabetes mellitus with complications (1 source) Type 2 diabetes mellitus with other specified complication; Translations: [Type 2 diabetes mellitus with other specified complication] Onset: 05-23-2024 Chronic Diabetes mellitus without complication (5 sources) Increased glucose level; Translations: [Other abnormal glucose] 05-27-2022 Episodic Disorders of lipid metabolism (7 sources) Hypercholesterolemia; Translations: [Pure hypercholesterolemia, unspecified] Onset: 12-01-2023 04-22-2022 Chronic Mycoses (17 sources) Candidiasis of skin; Translations: [Candidiasis of skin and nail] 04-22-2022 Episodic Other female genital disorders (6 sources) Pruritus of vagina; Translations: [Other specified noninflammatory disorders of vagina] 04-22-2022 Episodic Other female genital disorders (4 sources) Other specified noninflammatory disorders of vagina; Translations: [Pruritus of genital organs] 09-02-2022 Episodic Other female genital disorders (1 source) Atrophic vulva; Translations: [Atrophy of vulva] 07-27-2023 Episodic Other female genital disorders (2 sources) Atrophy of vulva; Translations: [Atrophy of vulva] 07-01-2023 Episodic Thyroid disorders (1 source) Nontoxic goiter, unspecified; Translations: [Nontoxic goiter, unspecified] Onset: 08-28-2024 Chronic Past or Other Problems Problem Classification Problem Date Documented Da te Episodic/Chronic Other screening for suspected conditions (not mental disorders or infectious disease) (1 source) Encounter for screening mammogram for malignant neoplasm of breast; Translations: [Encounter for screening mammogram for malignant neoplasm of breast] Onset: 11-29-2023 Episodic Results Test Name Value Interpretation Reference Range Facility CBC W/Diff, Automatedon Absolute Lymph 2.45 X10 3/uL Normal 0.83-4.51 [facility] Comment on above: Order Comment: PER P [facility] ORDER Order Date: 08/27/24 Order Info: 0184-1 - CBCD Performed By: #### L 501.9520, L100.0100 #### [facility] [address] [place], [address] Absolute Neut 4.2 X10 3/uL Normal 2.0-7.7 [facility] Comment on above: Order Comment: PER P [facility] ORDER Order Date: 08/27/24 Order Info: 0184-1 - CBCD Performed By: #### L 501.9520, L100.0100 #### [facility] [address] [place], [address] Basophils/100 WBC (Bld) 0.8 % Normal 0-1 [facility] Comment on above: Order Comment: PER [facility] ORDER Order Date: 08/27/24 Order Info: 0184- - CBCD Performed By: #### L [id number], L100.0100 #### [facility] [address] [place], [address] Eosinophils/100 WBC (Bld) 1.0 % Normal 0-5 [facility] Comment on above: Order Comment: PER [facility] ORDER Order Date: 08/27/24 Order Info: 0184- - CBCD Performed By: #### L 501.9520, L100.0100 #### [facility] [address] [place], [address] Erythrocyte distribution width (RBC) [Ratio] 13.1 % Normal 11.6-14.6 [facility] Comment on above: Order Comment: PER [facility] ORDER Order Date: 08/27/24 Order Info: 0184- - CBCD Performed By: #### L 501.9520, L100.0100 #### [facility] [address] [place], [address] Hematocrit (Bld) [Volume fraction] 43.2 % Normal 37-47 [facility] Comment on above: Order Comment: PER [facility] ORDER Order Date: 08/27/24 Order Info: 0184- - CBCD Performed By: #### L 501.9520, L100.0100 #### [facility] [address] [place], [address] Hemoglobin (Bld) [Mass/Vol] 13.7 g/dL Normal 12.0-15.0 [facility] Comment on above: Order Comment: PER [facility] ORDER Order Date: 08/27/24 Order Info: 0184-1 - CBCD Performed By: #### L 501.9520, L100.0100 #### [facility] [address] [place], [address] IG% 0.100 Normal 0.0-0.9 [facility] Comment on above: Order Comment: PER [facility] ORDER Order Date: 08/27/24 Order Info: 0184-1 - CBCD Result Comment: IG% - Immature Granulocytes (promyelocytes, myelocytes and metamyelocytes) > 1% indicates that a LEFT SHIFT is Present. Performed By: #### L 501.9520, L100.0100 #### [facility] [address] [place], [address] Lymphocytes/100 WBC (Bld) 33.7 % Normal 19-41 [facility] Comment on above: Order Comment: PER [facility] ORDER Order Date: 08/27/24 Order Info: 0184- - CBCD Performed By: #### L 501.9520, L100.0100 #### [facility] [address] [place], [address] MCH (RBC) [Entitic mass] 30.1 pg Normal 27.0-32.0 [facility] Comment on above: Order Comment: PER [facility] ORDER Order Date: 08/27/24 Order Info: 0184-1 - CBCD Performed By: #### L 501.9520, L100.0100 #### [facility] [address] [place], [address] MCHC (RBC) [Mass/Vol] 31.7 g/dL Low 32-36 [facility] Comment on above: Order Comment: PER [facility] ORDER Order Date: 08/27/24 Order Info: 0184- - CBCD Performed By: #### L 501.9520, L100.0100 #### [facility] [address] [place], [address] MCV (RBC) [Entitic vol] 94.9 fL Normal 81-99 [facility] Comment on above: Order Comment: PER [facility] ORDER Order Date: 08/27/24 Order Info: 0184- - CBCD Performed By: #### L 501.9520, L100.0100 #### [facility] [address] [place], [address] Monocytes/100 WBC (Bld) 6.3 % Normal 0-10 [facility] Comment on above: Order Comment: PER [facility] ORDER Order Date: 08/27/24 Order Info: 0184- - CBCD Performed By: #### L 501.9520, L100.0100 #### [facility] [address] [place], [address] Neutrophils/100 WBC (Bld) 58.1 % Normal 47-70 [facility] Comment on above: Order Comment: PER [facility] ORDER Order Date: 08/27/24 Order Info: 0184- - CBCD Performed By: #### L 501.9520, L100.0100 #### [facility] [address] [place], [address] Nucleated RBC (Bld) [#/Vol] 0 10*3/uL Normal 0-5 [facility] Comment on above: Order Comment: PER [facility] ORDER Order Date: 08/27/24 Order Info: 0184- - CBCD Performed By: #### L 501.9520, L100.0100 #### [facility] [address] [place], [address] Platelet mean volume (Bld) [Entitic vol] 11.9 fL Normal 6.2-12.0 [facility] Comment on above: Order Comment: PER [facility] ORDER Order Date: 08/27/24 Order Info: 0184- - CBCD Performed By: #### L 501.9520, L100.0100 #### [facility] [address] [place], [address] Platelets (Bld) [#/Vol] 242 10*3/uL Normal 150-450 [facility] Comment on above: Order Comment: PER P T-[facility] ORDER Order Date: 08/27/24 Order Info: 0184- - CBCD Performed By: #### L 501.9520, L100.0100 #### [facility] [address] [place], [address] RBC (Bld) [#/Vol] 4.55 10*6/uL Normal 4.2-5.4 [facility] Comment on above: Order Comment: PER P T-[facility] ORDER Order Date: 08/27/24 Order Info: 0184- - CBCD Performed By: #### L 501.9520, L100.0100 #### [facility] [address] [place], [address] RDW SD 45.2 fl High 35.1-43.9 [facility] Comment on above: Order Comment: PER P [facility] ORDER Order Date: 08/27/24 Order Info: 0184- - CBCD Performed By: #### L 501.9520, L100.0100 #### [facility] [address] [place], [address] WBC (Bld) [#/Vol] 7.3 10*3/uL Normal 4.4-11.0 [facility] Comment on above: Order Comment: PER P T-[facility] ORDER Order Date: 08/27/24 Order Info: 0184- - CBCD Performed By: #### L 501.9520, L100.0100 #### [facility] [address] [place], [address] Thyroid Stim Hormone (TSH)on 08-27-2024 TSH 1.190 uIU/mL Normal 0.300-4.200 [facility] Comment on above: Order Comment: PER P T-[facility] ORDER Order Date: 08/27/24 Order Info: 3016-3 - TSH Performed By: #### L 501.9520, L100.0100 #### [facility] [address] [place], [address] Basic Metabolic Profile (BMP )on 05-07-2024 BUN/CRE 13.9 RATIO Normal 10-20 [facility] Comment on above: Order Comment: PER P T-[facility] ORDER Order Date: 08/27/24 Order Info: 3016-3 - TSH Performed By: #### L 501.9520, L100.0100 #### [facility] [address] [place], [address] CA,Total 9.1 mg/dL Normal 8.5-10.1 [facility] Comment on above: Order Comment: PER P T-JUST [facility]AR ORDER Order Date: 08/27/24 Order Info: 3016-3 - TSH Performed By: #### L 501.9520, L100.0100 #### [facility] [address] [place], [address] Chloride [Moles/Vol] 105 mmol/L Normal 98-107 [facility] Comment on above: Order Comment: PER P T-JUST ISAMAR ORDER Order Date: 08/27/24 Order Info: 3016-3 - TSH Performed By: #### L 501.9520, L100.0100 #### [facility] [address] [place], [address] CO2 [Moles/Vol] 25.0 mmol/L Normal 21.0-32.0 [facility] Comment on above: Order Comment: PER P T-JUST ISAMAR ORDER Order Date: 08/27/24 Order Info: 3016-3 - TSH Performed By: #### L 501.9520, L100.0100 #### [facility] [address] [place], [address] Creatinine [Mass/Vol] 0.79 mg/dL Normal 0.55-1.02 [facility] Comment on above: Order Comment: PER P T-JUST ISAMAR ORDER Order Date: 08/27/24 Order Info: 3016- - TSH Result Comment: The validity of the calculated GFR GFRAA in patients over 70 years has not been determined. Clinical correlation is essential. Performed By: #### L 501.9520, L100.0100 #### [facility] [address] [place], [address] EST GFR - AA 93 mL/min Normal >60 [facility] Comment on above: Order Comment: PER P T-JUST [facility] ORDER Order Date: 08/27/24 Order Info: 301-3 - TSH Result Comment: Afri can Samoan GFR Calc Performed By: #### L 501.9520, L100.0100 #### [facility] [address] [place], [address] GAP 7 Normal 5-15 [facility] Comment on above: Order Comment: PER P T-[facility] ORDER Order Date: 08/27/24 Order Info: 3016 - TSH Performed By: #### L [id number], L100.0100 #### [facility] [address] [place], [address] GFR/1.73 sq M.predicted among non-blacks MDRD (S/P/Bld) [Vol rate/Area] 77 mL/min/{1.73_m2} Normal >60 [facility] Comment on above: Order Comment: PER P T-[facility] ORDER Order Date: 08/27/24 Order Info: 3016-3 - TSH Result Comment: Non- GFR Calc Performed By: #### L 501.9520, L100.0100 #### [facility] [address] [place], [address] Glucose [Mass/Vol] 110 mg/dL High 74-106 [facility] Comment on above: Order Comment: PER P T-JUST ISAMAR ORDER Order Date: 08/27/24 Order Info: 3016-3 - TSH Result Comment: Fast ing Glucose result from 100 to 125 mg/dL suggests IMPAIRED HOMEOSTASIS per A.D.A. criteria. Performed By: #### L 501.9520, L100.0100 #### [facility] [address] [place], [address] Potassium [Moles/Vol] 4.6 mmol/L Normal 3.5-5.1 [facility] Comment on above: Order Comment: PER P T-JUST ISAMAR ORDER Order Date: 08/27/24 Order Info: 3016-3 - TSH Performed By: #### L 501.9520, L100.0100 #### [facility] [address] [place], [address] Sodium [Moles/Vol] 136 mmol/L Normal 136-145 [facility] Comment on above: Order Comment: PER P T-JUST ISAMAR ORDER Order Date: 08/27/24 Order Info: 3016-3 - TSH Performed By: #### L 501.9520, L100.0100 #### [facility] [address] [place], [address] Urea nitrogen [Mass/Vol] 11 mg/dL Normal 7-18 [facility] Comment on above: Order Comment: PER P T-JUST ISAMAR ORDER Order Date: 08/27/24 Order Info: 3016-3 - TSH Performed By: #### L 501.9520, L100.0100 #### [facility] [address] [place], [address] Lipid Profileon 05-07-2024 Cholesterol [Mass/Vol] 165 mg/dL Normal 200 [facility] Comment on above: Result Comment: <200 mg/dL Desirable 200-240 mg/dL Borderline >240 mg/dL High Risk Performed By: #### L 501.9520, L100.0100 #### [facility] [address] [place], [address] Cholesterol in HDL [Mass/Vol] 59 mg/dL Normal [facility] Comment on above: Result Comment: The drugs N-Acetylcysteine and Metamizole may falsely depress this assay. Reference Range HDL <40 mg/dL Low HDL Cholesterol HDL >or= 60 mg/dL High HDL Cholesterol Performed By: #### L 501.9520, L100.0100 #### [facility] [address] [place], [address] Cholesterol in LDL [Mass/Vol] 77 mg/dL Normal 0-130 [facility] Comment on above: Performed By: #### L 501.9520, L100.0100 #### [facility] [address] [place], [address] Cholesterol in VLDL [Mass/Vol] 29 mg/dL Normal 5-40 [facility] Comment on above: Performed By: #### L 501.9520, L100.0100 #### [facility] [address] [place], [address] Triglyceride [Mass/Vol] 146 mg/dL Normal [facility] Comment on above: Result Comment: The drugs N-Acetylcysteine and Metamizole may falsely depress this assay. Serum Triglycerides Reference Interval Normal <150 mg/dL Borderline high 150 - 199 mg/dL High 200 - 499 mg/dL Very High > or = 500 mg/dL Performed By: #### L 501.9520, L100.0100 #### [facility] [address] [place], [address] Liver Profileon 05-07-2024 Albumin [Mass/Vol] 4.0 g/dL Normal 3.2-5.0 [facility] Comment on above: Order Comment: [facility] ORDER Order Date: 08/27/24 Order Info: 3016-3 - TSH Performed By: #### L 501.9520, L100.0100 #### [facility] [address] [place], [address] ALK P 71 U/L Normal 45-117 [facility] Comment on above: Order Comment: PER [facility] ORDER Order Date: 08/27/24 Order Info: 3016-3 - TSH Performed By: #### L 501.9520, L100.0100 #### [facility] [address] [place], [address] ALT [Catalytic activity/Vol] 40 U/L Normal 13-56 [facility] Comment on above: Order Comment: PER [facility] ORDER Order Date: 08/27/24 Order Info: 3016-3 - TSH Performed By: #### L 501.9520, L100.0100 #### [facility] [address] [place], [address] AST [Catalytic activity/Vol] 16 U/L Normal 15-37 [facility] Comment on above: Order Comment: PER [facility] ORDER Order Date: 08/27/24 Order Info: 301-3 - TSH Performed By: #### L 501.9520, L100.0100 #### [facility] [address] [place], [address] Bilirubin [Mass/Vol] 0.40 mg/dL Normal 0.20-1.00 [facility] Comment on above: Order Comment: PER [facility] ORDER Order Date: 08/27/24 Order Info: 3016-3 - TSH Result Comment: For patients on eltrombopag therapy, use of Dimension [place] TBIL is not recommended. Performed By: #### L 501.9520, L100.0100 #### [facility] [address] [place], [address] Bilirubin.direct [Mass/Vol] 0.14 mg/dL Normal 0.00-0.30 [facility] Comment on above: Order Comment: PER [facility] ORDER Order Date: 08/27/24 Order Info: 3016-3 - TSH Performed By: #### L 501.9520, L100.0100 #### [facility] [address] [place], [address] Globulin (S) [Mass/Vol] 3.1 g/dL Normal 2.2-4.2 [facility] Comment on above: Order Comment: PER P ELMER ISAMAR ORDER Order Date: 08/27/24 Order Info: 3016-3 - TSH Performed By: #### L 501.9520, L100.0100 #### [facility] [address] [place], [address] T PROT 7.1 g/dL Normal 6.4-8.2 [facility] Comment on above: Order Comment: PER P ELMER ISAMAR ORDER Order Date: 08/27/24 Order Info: 3016-3 - TSH Performed By: #### L 501.9520, L100.0100 #### [facility] [address] [place], [address] Protein+Creatinine Ratio,Uri neon 05-07-2024 PROT:CRE RATIO TNP Normal 0-200 [facility] Comment on above: Performed By: #### L 501.9520, L100.0100 #### [facility] [address] [place], [address] PROTEIN,UR.RAN. < 6.0 Normal <11.9 [facility] Comment on above: Performed By: #### L 501.9520, L100.0100 #### [facility] [address] [place], [address] UR CREAT 30.30 mg/dL Normal NO RANGE EST. [facility] Comment on above: Performed By: #### L 501.9520, L100.0100 #### [facility] [address] [place], [address] Thyroid Stim Hormone (TSH)on 05-07-2024 TSH 1.390 uIU/mL Normal 0.358-3.740 [facility] Comment on above: Performed By: #### L 501.9520, L100.0100 #### [facility] [place], [address] Fuel Dock Attendant Office Visit Reporton 12-13-2023 Fuel Dock Attendant Office Visit Report [facility] [address], [address] [place] [address] OFFICE VISIT Date of Service: 12/13/23 MR#: [id number] Acct: [id number] Name: MAE MONTANA Rep #: [id number] : 1955 Provider: IGOR flynn Age/Sex: 68/F [place] [facility] [place]: Signed Intake Vital Signs 08/17/23 09:20 11/24/23 14:36 12/13/23 14:25 12/13/23 14:31 Height 5 ft 5 in 5 ft 5 in 5 ft 5 in 5 ft 5 in Weight: 182 lb 4 oz BMI 30.3 BP 136/75 H 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) Chief Complaint: Annual Community Mental Health Social Worker Required: No Is patient in pain?: No Allergies No Known Allergies Allergy (Verified 12/13/23 14:25) Medications ???Medication ???Instructions ???Recorded ???Confirmed ???Type atorvastatin 20 mg tablet 20 mg PO QDAY 06/10/17 12/13/23 History nystatin 100,000 unit/gram topical 1 applic topical BID vaginal 07/04/23 12/13/23 Rx cream irritation/itch #30 grams estradiol 0.01% (0.1 mg/gram) 1 appful vaginal QDAY 12/13/23 12/13/23 History vaginal cream fluticasone propionate 50 1 spray intranasal QDAY 12/13/23 12/13/23 History mcg/actuation nasal spray,suspension (Flonase Allergy Relief) Is last menstrual period known: No Post menopausal: Yes Patient : No : No PFSH Medical History HPV (human papilloma virus) infection Anemia Hyperlipidemia Surgical History S/P hernia repair H/O: hysterectomy S/P tonsillectomy Family History Father Hypertension Myocardial infarction Diabetes TIA (transient ischemic attack) Hyperlipidemia Mother Hypertension Diabetes Grandmother Breast cancer Grandfather Colon cancer Other Cirrhosis of liver Social History Smoking Status: Never smoker alcohol intake: current alcohol intake frequency: a few times a month Alcohol type: wine substance use type: does not use what type of physical activity do you participate in: walking frequency: 1-2 times per week History 1 Elective abortions Hx Para 1 Spontaneous abortions Hx # Term Pregnancies Ectopic pregnancies Hx # Pregnancies Multiple births # of living children HPI Encounter for routine gynecological examination Details: MAE MONTANA is a 68 year old who presents for annual exam. Estradiol cream is working well. Denies concerns Last PAP: NA/hyst History of abnormal PAP: no Last mammogram: 10/2023 History of abnormal mammogram: no Colon cancer screening: <10 yr Other preventative health care screenings: Sam Female Reproductive History Questions: metorrhagia: No and sexually active: No Menopausal Treatment: Yes Vaginal Estrogen ROS Const Constitutional: Denies fatigue, weight gain or weight loss Cardio Card: Denies chest pain Resp Resp: Denies cough or dyspnea on exertion GI GI: Denies abdominal pain, bloating, change in stool character, constipation or vomiting : Reports as per HPI; Denies difficulty voiding, pelvic pain, urinary frequency, urinary incontinence, urinary urgency, vaginal discharge or vaginal pruritus Exam Const General: cooperative, healthy appearing, no acute distress and well developed Orientation: alert, oriented to person and oriented to place [facility] Head: normal to inspection Neck Neck: normal visual inspection Thyroid: thyroid normal Lymphatic: no lymphadenopathy noted Chest Breast inspection: normal inspection of the breasts and normal inspection of the axillae Breast palpation: normal palpation of the breasts, normal palpation of the axillae and no axillary lymphadenopathy Resp Effort Inspection: normal respiratory effort GI Palpation: soft, no masses and nontender Rectal Exam: deferred External Female Exam: normal external appearance and normal appearance of the urethra Urethra: normal appearance of the urethra and normal palpation Speculum Exam - Vagina: normal vaginal discharge and vagina atrophic (mild) Speculum Exam - Cervix: absent Bimanual Exam- Vagina Uterus: normal bimanual exam and uterus absent Bimanual Exam- Adnexa, other: normal adnexae, no masses, normal and non-tender Pelvic Support: normal Neuro General: patient alert and patient oriented x3 Psych Affect: normal affect Coding Level of Care Code Pelvic/Breast Diagnoses Encounter for gynecological examination with abnormal finding Z01.411 Gynecological examination findings: abnormal findings PRESENT HPV (human papilloma virus) infection B97.7 Vulvar atrophy N90.5 Assessment and Plan Assessment and Plan (1) Encounter for routine gynecological examination: (more content not included)... Normal [facility] Dexa Bone Density Studyon Dexa Bone Density Study [facility] Imaging Services [address] [place] [address] Dexa Bone Density Study MR#: [id number] Acct: [id number] Name: MAE MONTANA Rep #: [id number] : 1955 F 68 From: Victor Hugo thompson MD PCP: Dr. Marissa Vargas MD Status: [facility] Study: Dexa Bone Density Study Date of Exam: 11/24/23 Exam# [id number] Ordering Dr: Marissa Vargas MD [id number] STUDY: DUAL ENERGY X-RAY ABSORPTIOMETRY / DXA REASON FOR EXAM: Female, 68 years old. V76.12ScreeningBONE DENSITY REASON FOR EXAM TECHNIQUE: Bone Mineral Density (BMD) measurements of lumbar spine and bilateral hips were obtained. COMPARISON: Comparison is made with prior study dated March 27, 2015. FINDINGS: Lumbar Spine (L1-L4): g/cm2 (0.948) / T-score (-0.9) / Z-score (1.1) Findings are suggestive of normal bone density with a low fracture risk. Left Femur Total: g/cm2 (0.936) / T-score (0.0) / Z-score (1.4) Left Femoral Neck: g/cm2 (0.738) / T-score (-1.0) / Z-score (0.7) Right Femur Total: g/cm2 (0.920) / T-score (-0.2) / Z-score (1.2) Right Femoral Neck: g/cm2 (0.706) / T-score (-1.3) / Z-score (0.4) The T-Scores on the most recent prior examination were: Lumbar Spine (L1-L4): There has been improvement of bone density since the previous examination. Left Femur Total: which represents an improvement of 6.4%. Right Femur Total: which represents an improvement of 4.3%. BD/Dexa Bone Density Study IMPRESSION: The patient is considered osteopenic as outlined below according to World Smith Organization (WHO) criteria with a low fracture risk. There has been improvement of bone density since the previous examination. Reference Information: The T-score is the number of standard deviations above or below the standard which is normal for young adults at their peak bone mineral density. The World Health Organization (WHO) interprets the T-scores as follows: Above -1 Normal bone density Between -1 and -2.5 Osteopenia Equal to / or below -2.5 Osteoporosis As a practical clinical guideline, osteopenia may be graded as follows: Mild -1 through -1.5 Moderate -1.6 through -2.0 Severe -2.1 through -2.4 The Z-score is the number of standard deviations above or below age-matched controls. A Z-score of less than -1.5 would be considered abnormal. References: 1. NIH Osteoporosis and Related Bone Diseases www osteo.org 2. International Society for Clinical Densitometry www iscd.org 3. National Osteoporosis Foundation www nof.org Electronically Signed: Victor Hugo Rogers MD at 11:12 EDT , CC: Dr. Marissa Vargas MD [employer] Specialist: Signed Normal [facility] SCRN MAMM (CAD)W/ODELL BILATo n 11-24-2023 SCRN MAMM (CAD)W/ODELL BILAT [facility] Imaging Services [address] [place] [address] SCRN MAMM (CAD)W/ODELL BILAT MR#: [id number] Acct: [id number] Name: MAE MONTANA Rep #: [id number] : 1955 F 68 From: Victor Hugo thompson MD PCP: Dr. Marissa Vargas MD Status: [facility] Study: SCRN MAMM (CAD)W/ODELL BILAT Date of Exam: 10/27 12/19 Exam# [id number] Ordering Dr: Marissa Vargas MD [id number] MAMMOGRAPHY - BILATERAL SCREENING REASON FOR EXAM: Female, 68 years old. Routine annual screening examination. PERTINENT HISTORY: Grandmother with breast cancer. TECHNIQUE: Digital bilateral breast odell (3D mammographic acquisition) in the CC and MLO projections. 2-D mediolateral oblique (MLO) and craniocaudad (CC) views of both breasts were obtained. CAD: Full Field Digital Mammography with Computer Added Detection was performed. COMPARISON: Comparison is made with prior study dated November 11, 2022 and November 10, 2021. FINDINGS: Breast Composition: The breasts are heterogeneously dense, which may obscure small masses. There are no dominant masses or suspicious calcifications. Stable small benign-appearing bilateral axillary lymph nodes. No other significant abnormalities are identified. There has been no significant change since the prior study. BI/SCRN MAMM (CAD)W/ODELL BILAT IMPRESSION: Stable bilateral screening mammogram. Yearly follow-up mammogram recommended. (A) ASSESSMENT CATEGORY: BIRADS Category 2: Benign. A letter regarding these results will be sent to the patient by the facility within 30 days. Approximately 10% of breast cancers are not detected by mammography. A normal mammogram should not delay biopsy of a clinically suspicious abnormality. [id number] Electronically Signed: Victor Hugo Rogers MD at 8:56 EDT Reading Location ID and State: [facility] / [place] , Service support , CC: Dr. Marissa Vargas MD [employer] Specialist: Signed Normal [facility] Basic Metabolic Profile (BMP )on 11-07-2023 BUN/CRE 19.8 RATIO Normal 10-20 [facility] Comment on above: Performed By: #### L 500.3400, L501.0900, L500.4100, L501.9985, L500.2500 #### [facility] Laboratory [address] [place], [address] CA,Total 9.1 mg/dL Normal 8.5-10.1 [facility] Comment on above: Performed By: #### L 500.3400, L501.0900, L500.4100, L501.9985, L500.2500 #### [facility] Laboratory [address] [place], [address] Chloride [Moles/Vol] 107 mmol/L Normal 98-107 [facility] Comment on above: Performed By: #### L 500.3400, L501.0900, L500.4100, L501.9985, L500.2500 #### [facility] Laboratory [address] [place], [address] CO2 [Moles/Vol] 27.0 mmol/L Normal 21.0-32.0 [facility] Comment on above: Performed By: #### L 500.3400, L501.0900, L500.4100, L501.9985, L500.2500 #### [facility] Laboratory [address] [place], [address] Creatinine [Mass/Vol] 0.81 mg/dL Normal 0.55-1.02 [facility] Comment on above: Result Comment: The validity of the calculated GFR GFRAA in patients over 70 years has not been determined. Clinical correlation is essential. Performed By: #### L 500.3400, L501.0900, L500.4100, L501.9985, L500.2500 #### [facility] Laboratory [address] [place], [address] EST GFR - AA 91 mL/min Normal >60 [facility] Comment on above: Result Comment: Afri can Samoan GFR Calc Performed By: #### L 500.3400, L501.0900, L500.4100, L501.9985, L500.2500 #### [facility] Laboratory [address] [place], [address] GAP 4 Low 5-15 [facility] Comment on above: Performed By: #### L 500.3400, L501.0900, L500.4100, L501.9985, L500.2500 #### [facility] Laboratory [address] [place], [address] GFR/1.73 sq M.predicted among non-blacks MDRD (S/P/Bld) [Vol rate/Area] 75 mL/min/{1.73_m2} Normal >60 [facility] Comment on above: Result Comment: Non- GFR Calc Performed By: #### L 500.3400, L501.0900, L500.4100, L501.9985, L500.2500 #### [facility] Laboratory [address] [place], [address] Glucose [Mass/Vol] 154 mg/dL High 74-106 [facility] Comment on above: Result Comment: Fast ing Glucose result greater than or equal to 126 mg/dL suggests DIABETES MELLITUS per A.D.A. criteria. Performed By: #### L 500.3400, L501.0900, L500.4100, L501.9985, L500.2500 #### [facility] Laboratory [address] [place], [address] Potassium [Moles/Vol] 4.2 mmol/L Normal 3.5-5.1 [facility] Comment on above: Performed By: #### L 500.3400, L501.0900, L500.4100, L501.9985, L500.2500 #### [facility] Laboratory [address] [place], [address] Sodium [Moles/Vol] 138 mmol/L Normal 136-145 [facility] Comment on above: Performed By: #### L 500.3400, L501.0900, L500.4100, L501.9985, L500.2500 #### [facility] Laboratory [address] [place], [address] Urea nitrogen [Mass/Vol] 16 mg/dL Normal 7-18 [facility] Comment on above: Performed By: #### L 500.3400, L501.0900, L500.4100, L501.9985, L500.2500 #### [facility] Laboratory [address] [place], [address] Hemoglobin A1con 11-07-2023 HbA1c (Bld) [Mass fraction] 6.2 % High 3.8-5.6 [facility] Comment on above: Result Comment: Norm al < 5.7 % Prediabetic 5.7 - 6.4 % Diabetic >or= 6.5 % Please note range changes. Performed By: #### L 500.3400, L501.0900, L500.4100, L501.9985, L500.2500 #### [facility] Laboratory [address] [place], [address] Lipid Profileon 11-07-2023 Cholesterol [Mass/Vol] 178 mg/dL Normal 200 [facility] Comment on above: Result Comment: <200 mg/dL Desirable 200-240 mg/dL Borderline >240 mg/dL High Risk Performed By: #### L 500.3400, L501.0900, L500.4100, L501.9985, L500.2500 #### [facility] Laboratory [address] [place], [address] Cholesterol in HDL [Mass/Vol] 58 mg/dL Normal [facility] Comment on above: Result Comment: The drugs N-Acetylcysteine and Metamizole may falsely depress this assay. Reference Range HDL <40 mg/dL Low HDL Cholesterol HDL >or= 60 mg/dL High HDL Cholesterol Performed By: #### L 500.3400, L501.0900, L500.4100, L501.9985, L500.2500 #### [facility] Laboratory [address] [place], [address] Cholesterol in LDL [Mass/Vol] 85 mg/dL Normal 0-130 [facility] Comment on above: Performed By: #### L 500.3400, L501.0900, L500.4100, L501.9985, L500.2500 #### [facility] Laboratory [address] [place], [address] Cholesterol in VLDL [Mass/Vol] 35 mg/dL Normal 5-40 [facility] Comment on above: Performed By: #### L 500.3400, L501.0900, L500.4100, L501.9985, L500.2500 #### [facility] Laboratory [address] [place], [address] Triglyceride [Mass/Vol] 176 mg/dL Normal [facility] Comment on above: Result Comment: The drugs N-Acetylcysteine and Metamizole may falsely depress this assay. Serum Triglycerides Reference Interval Normal <150 mg/dL Borderline high 150 - 199 mg/dL High 200 - 499 mg/dL Very High > or = 500 mg/dL Performed By: #### L 500.3400, L501.0900, L500.4100, L501.9985, L500.2500 #### [facility] Laboratory [address] [place], [address] Liver Profileon 11-07-2023 Albumin [Mass/Vol] 3.6 g/dL Normal 3.2-5.0 [facility] Comment on above: Performed By: #### L 500.3400, L501.0900, L500.4100, L501.9985, L500.2500 #### [facility] Laboratory [address] [place], [address] ALK P 71 U/L Normal 45-117 [facility] Comment on above: Performed By: #### L 500.3400, L501.0900, L500.4100, L501.9985, L500.2500 #### [facility] Laboratory [address] [place], [address] ALT [Catalytic activity/Vol] 31 U/L Normal 13-56 [facility] Comment on above: Performed By: #### L 500.3400, L501.0900, L500.4100, L501.9985, L500.2500 #### [facility] Laboratory [address] [place], [address] AST [Catalytic activity/Vol] 15 U/L Normal 15-37 [facility] Comment on above: Performed By: #### L 500.3400, L501.0900, L500.4100, L501.9985, L500.2500 #### [facility] Laboratory [address] [place], [address] Bilirubin [Mass/Vol] 0.40 mg/dL Normal 0.20-1.00 [facility] Comment on above: Result Comment: For patients on eltrombopag therapy, use of Dimension [place] TBIL is not recommended. Performed By: #### L 500.3400, L501.0900, L500.4100, L501.9985, L500.2500 #### [facility] Laboratory [address] [place], [address] Bilirubin.direct [Mass/Vol] 0.09 mg/dL Normal 0.00-0.30 [facility] Comment on above: Performed By: #### L 500.3400, L501.0900, L500.4100, L501.9985, L500.2500 #### [facility] Laboratory [address] [place], [address] Globulin (S) [Mass/Vol] 3.2 g/dL Normal 2.2-4.2 [facility] Comment on above: Performed By: #### L 500.3400, L501.0900, L500.4100, L501.9985, L500.2500 #### [facility] Laboratory [address] [place], [address] T PROT 6.8 g/dL Normal 6.4-8.2 [facility] Comment on above: Performed By: #### L 500.3400, L501.0900, L500.4100, L501.9985, L500.2500 #### [facility] Laboratory [address] [place], [address] Protein+Creatinine Ratio,Uri neon 11-07-2023 PROT:CRE RATIO 191 mg/g CRE Normal 0-200 [facility] Comment on above: Performed By: #### L 500.3400, L501.0900, L500.4100, L501.9985, L500.2500 #### [facility] Laboratory [address] [place], [address] Protein (U) [Mass/Vol] 6.3 mg/dL Normal <11.9 [facility] Comment on above: Performed By: #### L 500.3400, L501.0900, L500.4100, L501.9985, L500.2500 #### [facility] Laboratory [address] [place], [address] UR CREAT 32.90 mg/dL Normal NO RANGE EST. [facility] Comment on above: Performed By: #### L 500.3400, L501.0900, L500.4100, L501.9985, L500.2500 #### [facility] Laboratory [address] [place], [address] Gram stain for investigation of transfusion reactionOrdered By: Ruth Castillo on 07-27-2023 Microscopic observation Gram stain Nom (Unsp spec) [facility] Laboratory - Chemistry and C hemistry - challengeon 07-27-2023 Bilirubin Ql (U) Negative [facility] Glucose Ql (U) Negative [facility] Ketones Ql (U) Negative [facility] pH (U) 5.0 [pH] [facility] Specific gravity (U) [Rel density] 1.010 [facility] Urobilinogen (U) [Mass/Vol] Negative [facility] Laboratory - Hematology and Cell countson 07-27-2023 Hemoglobin Ql (U) Negative [facility] Laboratory - Specimen inform ationon 07-27-2023 Clarity (U) Clear [facility] Color (U) YELLOW [facility] Laboratory - Urinalysison Nitrite Ql (U) Negative [facility] Protein Ql (U) Negative [facility] No Panel InformationOrdered By: Ruth Castillo on 07-27-2023 Genital Culture Neisseria or beta-hemolytic Streptococcus isolated. [facility] No Panel Informationon 07-26 Urine Leukocytes Negatve [facility] Urine Non-Hemolyzed Blood Negative [facility] Absolute lymphocyte countOrd ered By: Dr. Vargas on 09-15-2022 Lymphocytes Auto (Unsp spec) [#/Vol] 2.20 10*3/uL 0.83-4.51 [facility] Basophil percentageOrdered B y: Dr. Vargas on 09-15-2022 Basophils/100 WBC (Bld) 0.8 % 0-1 [facility] Eosinophils/100 WBC (Bld) 1.2 % 0-5 [facility] Neutrophils (Bld) [#/Vol] 3.7 10*3/uL 2.0-7.7 [facility] Neutrophils/100 WBC (Bld) 58.0 % 47-70 [facility] WBC (Bld) [#/Vol] 6.4 10*3/uL 4.4-11.0 [facility] Blood erythrocytes count (nu mber/volume)Ordered By: Dr. Vargas on 09-15-2022 RBC (Bld) [#/Vol] 4.64 10*6/uL 4.2-5.4 [facility] Blood hemoglobin measurement (mass/volume)Ordered By: Dr. Vargas on 09-15-2022 Hemoglobin (Bld) [Mass/Vol] 13.9 g/dL 12.0-15.0 [facility] Blood lymphocytes/100 leukoc ytesOrdered By: Dr. Vargas on 09-15-2022 Lymphocytes/100 WBC (Bld) 34.3 % 19-41 [facility] Blood monocytes/100 leukocyt esOrdered By: Dr. Vargas on 09-15-2022 Monocytes/100 WBC (Bld) 5.5 % 0-10 [facility] Blood platelet mean volumeOr dered By: Dr. Vargas on 09-15-2022 Platelet mean volume (Bld) [Entitic vol] 10.9 fL 6.2-12.0 [facility] Determination of erythrocyte mean corpuscular volume (MCV)Ordered By: Dr. Vargas on 09-15-2022 MCV (RBC) [Entitic vol] 95.3 fL 81-99 [facility] Hematocrit Auto (Bld) [Volum e fraction]Ordered By: Dr. Vargas on 09-15-2022 Hematocrit (Bld) [Volume fraction] 44.2 % 37-47 [facility] Laboratory - Hematology and Cell countsOrdered By: Dr. Vargas on 09-15-2022 Erythrocyte distribution width (RBC) [Entitic vol] 44.7 fL 35.1-43.9 [facility] Erythrocyte distribution width (RBC) [Ratio] 12.8 % 11.6-14.6 [facility] Immature granulocytes/100 WBC (Bld) 0.200 % 0.0-0.9 [facility] Comment on above: IG% - Immature Granu locytes (promyelocytes, myelocytes and metamyelocytes) > 1% indicates that a LEFT SHIFT is Present. MCH (RBC) [Entitic mass] 30.0 pg 27.0-32.0 [facility] Nucleated RBC/100 WBC (Bld) [Ratio] 0 % 0-5 [facility] MCHC Auto (RBC) [Mass/Vol]Or dered By: Dr. Vargas on 09-15-2022 MCHC (RBC) [Mass/Vol] 31.4 g/dL 32-36 [facility] Platelets bldOrdered By: Dr. Vargas on 09-15-2022 Platelets (Bld) [#/Vol] 238 10*3/uL 150-450 [facility] Whole blood hemoglobin A1c/t otal hemoglobin ratio (mass fraction)Ordered By: Dr. Brewster on 09-02-2022 HbA1c (Bld) [Mass fraction] 6.1 % 3.8-5.6 [facility] Comment on above: Normal < 5.7 % Predi abetic 5.7 - 6.4 % Diabetic >or= 6.5 % Please note range changes. Whole blood hemoglobin A1c/t otal hemoglobin ratio (mass fraction)Ordered By: Jazzmine Kc on 05-27-2022 HbA1c (Bld) [Mass fraction] 6.3 % 3.8-5.6 [facility] Comment on above: Normal < 5.7 % Predi abetic 5.7 - 6.4 % Diabetic >or= 6.5 % Please note range changes. Absolute lymphocyte countOrd ered By: Dr. Vargas on 05-25-2022 Lymphocytes Auto (Unsp spec) [#/Vol] 2.69 10*3/uL 0.83-4.51 [facility] Basophil percentageOrdered B y: Dr. Vargas on 05-25-2022 Basophils/100 WBC (Bld) 0.6 % 0-1 [facility] Bilirubin [Mass/Vol] 0.20 mg/dL 0.20-1.00 [facility] Comment on above: For patients on eltr ombopag therapy, use of Dimension [place] TBIL is not recommended. Chloride [Moles/Vol] 106 mmol/L 98-107 [facility] Eosinophils/100 WBC (Bld) 1.4 % 0-5 [facility] Glucose [Mass/Vol] 116 mg/dL 74-106 [facility] Comment on above: Fasting Glucose resu lt from 100 to 125 mg/dL suggests IMPAIRED HOMEOSTASIS per A.D.A. criteria. Neutrophils (Bld) [#/Vol] 3.2 10*3/uL 2.0-7.7 [facility] Neutrophils/100 WBC (Bld) 50.2 % 47-70 [facility] Potassium [Moles/Vol] 3.8 mmol/L 3.5-5.1 [facility] Protein [Mass/Vol] 6.8 g/dL 6.4-8.2 [facility] Sodium [Moles/Vol] 140 mmol/L 136-145 [facility] WBC (Bld) [#/Vol] 6.5 10*3/uL 4.4-11.0 [facility] Blood erythrocytes count (nu mber/volume)Ordered By: Dr. Vargas on 05-25-2022 RBC (Bld) [#/Vol] 4.83 10*6/uL 4.2-5.4 [facility] Blood hemoglobin measurement (mass/volume)Ordered By: Dr. Vargas on 05-25-2022 Hemoglobin (Bld) [Mass/Vol] 14.3 g/dL 12.0-15.0 [facility] Blood lymphocytes/100 leukoc ytesOrdered By: Dr. Vargas on 05-25-2022 Lymphocytes/100 WBC (Bld) 41.7 % 19-41 [facility] Blood monocytes/100 leukocyt esOrdered By: Dr. Vargas on 05-25-2022 Monocytes/100 WBC (Bld) 5.9 % 0-10 [facility] Blood platelet mean volumeOr dered By: Dr. Vargas on 05-25-2022 Platelet mean volume (Bld) [Entitic vol] 11.4 fL 6.2-12.0 [facility] Determination of erythrocyte mean corpuscular volume (MCV)Ordered By: Dr. Vargas on 05-25-2022 MCV (RBC) [Entitic vol] 94.2 fL 81-99 [facility] Erythrocyte sedimentation ra teOrdered By: Dr. Vargas on 05-25-2022 ESR (Bld) [Velocity] 17 mm/h 0-30 [facility] Hematocrit Auto (Bld) [Volum e fraction]Ordered By: Dr. Vargas on 05-25-2022 Hematocrit (Bld) [Volume fraction] 45.5 % 37-47 [facility] Laboratory - Chemistry and C hemistry - challengeOrdered By: Dr. Vargas on 05-25-2022 ALP [Catalytic activity/Vol] 64 U/L 45-117 [facility] ALT [Catalytic activity/Vol] 36 U/L 13-56 [facility] CO2 [Moles/Vol] 27.0 mmol/L 21.0-32.0 [facility] Globulin (S) [Mass/Vol] 3.1 g/dL 2.2-4.2 [facility] Urea nitrogen/Creatinine [Mass ratio] 16.1 mg/mg 10-20 [facility] Laboratory - Hematology and Cell countsOrdered By: Dr. Vargas on 05-25-2022 Erythrocyte distribution width (RBC) [Entitic vol] 42.7 fL 35.1-43.9 [facility] Erythrocyte distribution width (RBC) [Ratio] 12.3 % 11.6-14.6 [facility] Immature granulocytes/100 WBC (Bld) 0.200 % 0.0-0.9 [facility] Comment on above: IG% - Immature Granu locytes (promyelocytes, myelocytes and metamyelocytes) > 1% indicates that a LEFT SHIFT is Present. MCH (RBC) [Entitic mass] 29.6 pg 27.0-32.0 [facility] Nucleated RBC/100 WBC (Bld) [Ratio] 0 % 0-5 [facility] MCHC Auto (RBC) [Mass/Vol]Or dered By: Dr. Vargas on 05-25-2022 MCHC (RBC) [Mass/Vol] 31.4 g/dL 32-36 [facility] No Panel InformationOrdered By: Dr. Vargas on 05-25-2022 Estimated GFR (MDRD) Amer 100 mL/min >60 [facility] Comment on above: GFR Calc Estimated GFR (MDRD) Non-Af Amer 82 mL/min >60 [facility] Comment on above: Non- GFR Calc Thyroid Stimulating Hormone (TSH) 1.56 uIU/mL 0.358-3.74 [facility] Platelets bldOrdered By: Dr. Vargas on 05-25-2022 Platelets (Bld) [#/Vol] 244 10*3/uL 150-450 [facility] Serum Sergio Jones virus cap joe IgG antibody assay (units/volume)Ordered By: Dr. Vargas on 05-25-2022 EBV capsid IgG Qn (S) [arb'U]/mL 0.0-17.9 [facility] Comment on above: Negative <18.0 Equiv ocal 18.0 - 21.9 Positive >21.9 Serum Sergio Jones virus cap joe IgM antibody assay (units/volume)Ordered By: Dr. Vargas on 05-25-2022 EBV capsid IgM Qn (S) [arb'U]/mL 0.0-35.9 [facility] Comment on above: Negative <36.0 Equiv ocal 36.0 - 43.9 Positive >43.9 Serum Sergio Jones virus nuc lear IgG antibody assay (units/volume)Ordered By: Dr. Vargas on 05-25-2022 EBV nuclear IgG Qn (S) 192.0 U/mL 0.0-17.9 [facility] Comment on above: Negative <18.0 Equiv ocal 18.0 - 21.9 Positive >21.9 Serum or plasma albumin avni urement (mass/volume)Ordered By: Dr. Vargas on 05-25-2022 Albumin [Mass/Vol] 3.7 g/dL 3.2-5.0 [facility] Serum or plasma albumin/glob ulin mass ratioOrdered By: Dr. Vargas on 05-25-2022 Albumin/Globulin [Mass ratio] 1.2 {ratio} 0.9-2.4 [facility] Serum or plasma calcium avni urement (mass/volume)Ordered By: Dr. Vargas on 05-25-2022 Calcium [Mass/Vol] 9.0 mg/dL 8.5-10.1 [facility] Serum or plasma creatinine m easurement (mass/volume)Ordered By: Dr. Vargas on 05-25-2022 Creatinine [Mass/Vol] 0.75 mg/dL 0.55-1.02 [facility] Comment on above: The validity of the calculated GFR & GFRAA in patients over 70 years has not been determined. Clinical correlation is essential. Serum or plasma urea nitroge n measurement (mass/volume)Ordered By: Dr. Vargas on 05-25-2022 Urea nitrogen [Mass/Vol] 12 mg/dL 7-18 [facility] Thin prep Papanicolaou smear with manual screeningOrdered By: Dr. Vargas on 05-25-2022 Thin prep Papanicolaou smear with manual screening 12 U/L 15-37 [facility] Thin prep Papanicolaou smear with manual screening 7 5-15 [facility] Thin prep Papanicolaou smear with manual screening Comment . [facility] Comment on above: EBV Interpretation C Andrés: Antibody Present + Antibody Absent -Interpretation VCA-IgM VCA-IgG EBNA-IgGNo previous infection/ - - -SusceptiblePrimary infection (new + + -or recent)Past Infection +or- + +See comment below* + - -*Results indicate infection with EBV at some time however cannot predict the timing of the infection since antibodies to EBNA usually develop after primary infection or, alternatively, approximately 5-10% of patients with EBV never develop antibodies to EBNA.Performed at: [address] [id number] Director: Pipo Bal PhD, Phone: [phone] Thin prep Papanicolaou smear with manual screeningOrdered By: Jazzmine Kc on 04-25-2022 Genital Culture Meth. resistant Staph. aureus [facility] Gram stain for investigation of transfusion reactionOrdered By: Jazzmine Kc on 04-23-2022 Microscopic observation Gram stain Nom (Unsp spec) [facility] ALLIED HEALTHon 05-05-2019 ALLIED HEALTH HNO ID: [id number] Author: Denia Blankenship) PERICO Valero Service: Radiology Author Type: Clinical Material Combiner Type: Allied Health Filed: 05/05/2019 8:42 AM Note Text: Radiology Service Progress Note PATIENT NAME: Mae Montana DATE OF SERVICE: May 05, 2019 TIME: 8:42 AM PATIENT IDENTITY VERIFICATION COMPLETED USING TWO (2) IDENTIFIERS: Name and Date of confirmed by patient verbally and Name and Date of confirmed by identification band. PATIENT GENDER DATA: Female. status: : No status: NO. PATIENT RELEVANT IMPLANT DATA REVIEWED: Not Applicable RADIOLOGY DEPARTMENT: CT; Exam(s) Completed: Sinus PERIPHERAL IV DATA: Not applicable SIGNED BY: PERICO Jackson May 05, 2019 8:42 AM [facility] CT SINUS STEREO WO IVCONon 0 05-05-2019 CT SINUS STEREO WO IVCON * * *Final Report* * * DATE OF EXAM: May 05 2019 8:49AM [facility] [place] CT SINUS STEREO WO IVCON / PROCEDURE REASON: J32.80 * * * * Physician Interpretation * * * * EXAMINATION: CT SINUS STEREO WO IVCON CLINICAL HISTORY: 63 years old Female with sinusitis TECHNIQUE: Spiral high resolution axial unenhanced CT images were obtained through the paranasal sinuses with sagittal, coronal reconstructions. MQ: CTSI_1 Dose-Length Product (DLP): 161 mGy*cm. CT Dose Reduction Employed: No dose reduction techniques were required COMPARISON: CT head 10/10/2012 RESULT: RESULT: Post-Surgical Findings: None Sinus Chambers: Focal lobulated mucosal thickening along the left lateral maxillary sinus wall, mild mucosal thickening of the anterior ethmoid air cells, minimal mucosal thickening right anterior lateral sphenoid sinus. Sphenoethmoidal recesses are patent. Nasal Cavities: Visualized nasal cavities are patent. Developmental Anomalies: Bilateral Morro cells. Ostiomeatal Complex: Patent within the constraints of the study. Other: The visualized mastoid air cells and middle ear cavities are clear. Aeration of bilateral petrous apices. The soft tissues of the face and orbits are within normal limits within the limitations of the study. IMPRESSION: Minimal paranasal sinus inflammatory changes. [employer] Specialist: DONNA Transcribe Date/Time: May 07 2019 9:38A Dictated by : JOHANNA GARCIA DO This examination was interpreted and the report reviewed and electronically signed by: JOHANNA GARCIA DO on May 07 2019 10:12AM EST [id number] [facility] Vital Signs Date Time Vital Sign Value Performing Clinician Casey love 07-27-2023 10:47-0400 Body height 165.[address] Marissa Vargas Work Phone: [facility] 07-27-2023 10:41-0400 Body mass index (BMI) [Ratio] 30.1 kg/m2 Dr. Marissa Vargas Work Phone: [facility] 07-27-2023 10:41-0400 Body weight 82.[address] Marissa Vargas Work Phone: [facility] 07-27-2023 10:41-0400 Diastolic blood pressure 70 mm[Hg] Dr. Marissa Vargas Work Phone: 6(791)293-348469 [address] 07-27-2023 10:41-0400 Systolic blood pressure 130 mm[Hg] Dr. Marissa Vargas Work Phone: 2(374)950-783969 [address] 07-01-2023 13:12-0400 Body mass index (BMI) [Ratio] 30.7 kg/m2 Dr. Marissa Vargas Work Phone: [facility] 07-01-2023 13:12-0400 Body weight 83.[address] Marissa Vargas Work Phone: 2(678)441-850447 [place] [address] 07-01-2023 13:12-0400 Diastolic blood pressure 80 mm[Hg] Dr. Marissa Vargas Work Phone: [facility] 07-01-2023 13:12-0400 Systolic blood pressure 133 mm[Hg] Dr. Marissa Vargas Work Phone: [facility] 09-02-2022 11:11-0400 Body height 165.[address] Marissa Vargas Work Phone: 1(100)713-922869 [address] 09-02-2022 11:09-0400 Body mass index (BMI) [Ratio] 28.5 kg/m2 Dr. Marissa Vargas Work Phone: 5(012)295-546747 [place] [address] 09-02-2022 11:09-0400 Body weight 77.[address] Marissa Vargas Work Phone: [facility] 09-02-2022 11:09-0400 Diastolic blood pressure 80 mm[Hg] Dr. Marissa Vargas Work Phone: [facility] 09-02-2022 11:09-0400 Systolic blood pressure 158 mm[Hg] Dr. Marissa Vargas Work Phone: [facility] 05-27-2022 07:46-0500 Body height 165.[address] Marissa Vargas Work Phone: [facility] 05-27-2022 07:46-0500 Body mass index (BMI) [Ratio] 30.4 kg/m2 Dr. Marissa Vargas Work Phone: [facility] 05-27-2022 07:46-0500 Body weight [address] Marissa Vargas Work Phone: 3(576)302-291447 [place] [address] 05-27-2022 07:46-0500 Diastolic blood pressure 79 mm[Hg] Dr. Marissa Vargas Work Phone: [facility] 05-27-2022 07:46-0500 Heart rate 67 /min Dr. Marissa Vargas Work Phone: 1(702)015-978369 [address] 05-27-2022 07:46-0500 Systolic blood pressure 131 mm[Hg] Dr. Marissa Vargas Work Phone: [facility] 04-22-2022 07:20-0500 Body height 165.[address] Marissa Vargas Work Phone: [facility] 04-22-2022 07:20-0500 Body mass index (BMI) [Ratio] 31.4 kg/m2 Dr. Marissa Vargas Work Phone: [facility] 04-22-2022 07:20-0500 Body weight 85.[address] Marissa Vargas Work Phone: [facility] 04-22-2022 07:20-0500 Diastolic blood pressure 79 mm[Hg] Dr. Marissa Vargas Work Phone: [facility] 04-22-2022 07:20-0500 Heart rate 76 /min Dr. Marissa Vargas Work Phone: [facility] 04-22-2022 07:20-0500 Systolic blood pressure 147 mm[Hg] Dr. Marissa Vargas Work Phone: [facility] Encounters Encounter Date Encounter Type Care Provider Facility Start: 08-30-2024 ambulatory Cheryl Penn CAR DISPATCHER Facility :[facility] Start: 08-27-2024 ambulatory Marissa Vargas Facility: [facility] Start: 05-07-2024 End: 05-07-2024 ambulatory Marissa Vargas Facility:[facility] Start: 12-13-2023 End: 12-13-2023 ambulatory Mar[place] Vargas [place] [place]: 11-24-2023 End: 11-24-2023 ambulatory Marissa Vargas Facility:[facility] Start: 11-07-2023 End: 11-07-2023 ambulatory Marissa Vargas Facility:[facility] Start: 07-27-2023 End: 07-27-[address] Marissa Vargas Work Phone: [facility] Work Phone: Start: 07-27-2023 End: 07-27-[address] Marissa Vargas Work Phone: [facility]Laboratory, Specimen Work Phone: Start: 07-27-2023 End: 07-27-[address] Marissa Vargas Work Phone: [facility] Work Phone: Start: 07-01-2023 End: 07-01-[address] Marissa Vargas Work Phone: [facility] Work Phone: Start: 11-11-2022 End: 11-11-[address] Marissa Vargas Work Phone: [facility] Work Phone: Start: 11-11-2022 End: 11-11-[address] Marissa Vargas Work Phone: [facility]Outpatient Breast Imaging Work Phone: Start: 09-15-2022 End: 09-15-[address] Marissa Vargas Work Phone: [facility] Work Phone: Start: 09-15-2022 End: 09-15-[address] Marissa Vargas Work Phone: [facility] Start: 09-02-2022 End: 09-02-[address] Marissa Vargas Work Phone: [facility] Start: 09-02-2022 End: 09-02-[address] Marissa Vargas Work Phone: [facility] Start: 05-27-2022 End: 05-27-[address] Marissa Vargas Work Phone: [facility] Work Phone: Start: 05-27-2022 End: 05-27-[address] [facility] Start: 05-27-2022 End: 05-27-[address] Marissa Vargas Work Phone: [facility] Start: 05-25-2022 End: 05-25-[address] Marissa Vargas Work Phone: [facility] Work Phone: Start: 05-25-2022 End: 05-25-[address] Marissa Vargas Work Phone: [facility] Start: 04-22-2022 End: 04-22-[address] Marissa Vargas Work Phone: [facility] Work Phone: Start: 04-22-2022 End: 04-22-[address] Marissa Vargas Work Phone: [facility]Laboratory, Specimen Start: 04-22-2022 End: 04-22-[address] Marissa Vargas Work Phone: [facility] Start: 11-10-2021 End: 11-10-2021 Patient encounter procedure [facility] Procedures Date Procedure Procedure Detail Performing Clinician Start: 07-27-[address] Marissa Vargas Work Phone: Start: 07-27-2023 Investigation of transfusion reaction Dr. Marissa Vargas Work Phone: Start: 11-11-2022 Screening mammography Bernadine Vargas Work Phone: Start: 11-10-2021 Screening mammography Cytopathology proced ure, preparation of smear, genital source Dr. Marissa Vargas Work Phone: Investigation of transfusion reaction Dr. Marissa Vargas Work Phone: Payers Date Payer Category Payer Private Health Insurance [facility] [id number] 2023 Self-pay [id number] 2012 Unknown [id number] Unknown [id number] Unknown [facility] PACKAGE PLAN [id number] Unknown [id number] Unknown [id number] Unknown [id number] Unknown [id number] Unknown [id number] Unknown [id number] Social History Date Type Detail Facility Start: 09-12-2018 End: 07-01-2023 Tobacco smoking status AKIS Unknown if ever smoked [facility] Start: 1955 Sex Assigned At Female [facility] Evaluation note Note Date & Type Note Facility Evaluation note No assessment information availa ble [facility] Work Phone: Evaluation note Note Date & Type Note Facility Evaluation note Diagnosis Onset Date Yeast infection of the skin acute [facility] Work Phone: Evaluation note Note Date & Type Note Facility Evaluation note Diagnosis Onset Date Yeast infection of the skin acute Vaginal yeast infection acut e [facility] Work Phone: Evaluation note Note Date & Type Note Facility Evaluation note Diagnosis Onset Date Vaginal yeast infection acut e Vaginal itching acute [facility] Work Phone: Evaluation note Note Date & Type Note Facility Evaluation note Diagnosis Onset Date Vaginal itching acute [facility] Work Phone: Evaluation note Note Date & Type Note Facility Evaluation note Diagnosis Onset Date Vulvar atrophy acute Vaginal itching resolved Vulvar atrophy acute Vaginal discharge noneactive [facility] Work Phone: Summary Purpose Family History No Family History Records Found Relationship Condition Age at Onset Recorded Date/T jorge Not Specified Hepatic cirrhosis Unknown father Hypertension Unknown Myocardial infarction Unknown Diabetes mellitus Unknown Transient cerebral ischemia Unknown Hyperlipidemia Unknown mother Hypertension Unknown grandmother Malignant neoplasm of breast Unknown grandfather Malignant neoplasm of colon Unknown Advance Directives No Advanced Directives Records Found Advance Directive Response Recorded Date/ Time Living Will No December 05, 2017 7:15pm Power of Sales Floor Associate No November 7:15pm Advance Directive Response Recorded Date/ Time Living Will No December 05, 2017 6:15pm Power of Sales Floor Associate No November 6:15pm Advance Directive Response Recorded Date/ Time Living Will No May 26, 2022 2:08pm Power of Sales Floor Associate No May 26 3 2:08pm Advance Directive Response Recorded Date/ Time Living Will No May 26, 2022 3:08pm Power of Sales Floor Associate No May 26 3 3:08pm Chief Complaint and Reason for Visit Chief Complaint SCREENING Chief Complaint severe vaginal itchi ng, ref by Dr. Vargas Reason for Visit Yeast infection of t he skin Chief Complaint severe vaginal itchi eli, ref by Dr. Vargas vaginal irritation/redness getting worse INT LABS Reason for Visit Yeast infection of t he skin Vaginal yeast infection Chief Complaint vaginal irritation/r edness getting worse INT LABS recurring vaginitis concerns NO E ORDERS YET Reason for Visit Vaginal yeast infect ion Vaginal itching Chief Complaint recurring vaginitis concerns NO E ORDERS YET SCREENING Reason for Visit Vaginal itching Chief Complaint vaginal irritation groin/vaginal pain Reason for Visit Vulvar atrophy Vaginal itching Vulvar atrophy Vaginal discharge Additional Source Comments INFORMATION SOURCE (unrecogn ized section and content) DATE CREATED AUTHOR 05/07/2019 [facility] DATE CREATED AUTHOR AUTHOR'S ORGANIZ ATION 08/28/2024 [facility] Goals (unrecognized section and content) Goals may be documented in a n alternate sectionGoals may be documented in an alternate sectionGoals may be documented in an alternate sectionGoals may be documented in an alternate sectionGoals may be documented in an alternate sectionGoals may be documented in an alternate sectionGoals may be documented in an alternate section Care Teams (unrecognized sec tion and content) Team Status: Active Member Role Status Dates Dr. Marissa Vargas MD Family Provider Active Dr. Marissa Vargas MD Primary Care Provider Active Team Status: Inactive Member Role Status Dates Dr. Marissa Vargas MD Primary Care Provider, Referrenuka g Provider Active Jazzmine Kc CNM Attending Provider Active Team Status: Inactive Member Role Status Dates Dr. Marissa Vargas MD Primary Care Provider Active Jazzmine Kc CNM Attending Provider, Referring Geovanna donald Active Team Status: Active Member Role Status Dates Dr. Marissa Vargas MD Primary Care Prov ider, Attending Provider, Referring Provider Active Team Status: Inactive Member Role Status Dates Dr. Marissa Vargas MD Primary Care Prov ider, Attending Provider, Referring Provider Active Team Status: Inactive Member Role Status Dates Dr. Marissa Vargas MD Primary Care Provider, Referrin g Provider Active Dr. Mague Ragsdale DO Attending Provider Activ e Team Status: Inactive Member Role Status Dates Dr. Marissa Vargas MD Primary Care Provider Active Dr. Mague Ragsdale DO Attending Provider, Refe rring Provider Active Team Status: Inactive Member Role Status Dates Dr. Marissa Varags MD Primary Care Provider, Attendin g Provider Active Team Status: Inactive Member Role Status Dates Dr. Marissa Vargas MD Primary Care Provider, Referrin g Provider Active Ruth Castillo CAR DISPATCHER CAR DISPATCHER-C Attending Provider Active Team Status: Inactive Member Role Status Dates Dr. Marissa Vargas MD Primary Care Provider Active Ruth Castillo NP CAR DISPATCHER-C Attending Provider, Referring Provider Active FOR RECORDS PERTAINING TO PATIENTS WHO ARE OR HAVE BEEN ENROLLED IN A CHEMICAL DEPENDENCY/SUBSTANCEABUSE PROGRAM, SOME INFORMATION MAY BE OMITTED. This clinical summary was aggregated from multiple sources. Caution should be exercised in using it in the provision of clinical care. This summary normalizes information from multiple sources, and as a consequence, information in this document may materially change the coding, format and clinical context of patient data. In addition, data may be omitted in some cases. CLINICAL DECISIONS SHOULD BE BASED ON THE PRIMARY CLINICAL RECORDS. [employer] provides no warranty or guarantee of the accuracy or completeness of information in this document.
== END | disposition home or self-care (01) ==
LOC: US 12:50
PROVIDERS: PCP Nurse Practitioner Family; Referring Provider Nurse Practitioner Family; Visit Provider Nurse Practitioner Family
DX: E04.9 Nontoxic goiter, unspecified (principal)
CPT/HCPCS: 76536

== ENCOUNTER → 2024-09-13 | Outpatient (CLI) | payer MEDICARE, SELFPAY ==
[2024-09-13 15:57] LABS: Hemoglobin A1c 6.4 % (<=5.6)
[2024-09-13 15:59] LABS: Microalbumin,Random Urine < 12.0 mg/L (NO RANGE EST.); Microalbumin:Creatinine Ratio UNABLE TO CALCULATE mg/g CRE
[2024-09-13 16:03] LABS: ALB/GLOB Ratio 1.9 RATIO (0.9-2.4); AST(SGOT) 18 U/L (<=31); Alanine Aminotransfer ALT/SGPT 25 U/L (<=34); Albumin, Serum 4.2 g/dL (3.4-4.8); Alkaline Phosphatase 67 U/L (35-104); Anion Gap 13 (5-15); BUN 14 mg/dL (4-19); BUN/Creat Ratio 16.8 RATIO (10-20); Calcium,Total 9.2 mg/dL (7.6-11.0); Carbon Dioxide 22.8 mmol/L (21.0-32.0); Chloride 107 mmol/L (98-108); Creatinine, Serum 0.85 mg/dL (0.70-1.20); EST Glomerular Filtration Rate 74 (>60); Globulin 2.2 g/dL (2.2-4.2); Glucose 126 mg/dL (70-99); Protein, Total 6.4 g/dL (5.9-8.4); Sodium Level 142 mmol/L (133-145); Total Bilirubin 0.33 mg/dL (0.00-1.30)
== END | disposition home or self-care (01) ==
LOC: MTLAB 12:35
PROVIDERS: Nurse Practitioner Family; PCP Family Medicine; Referring Provider Family Medicine; Visit Provider Family Medicine
DX: E11.9 Type 2 diabetes mellitus without complications (principal)
CPT/HCPCS: 36415; 80053; 82043; 82570; 83036

== ENCOUNTER → 2024-09-25 | Outpatient (CLI) | payer MEDICARE, SELFPAY | END | disposition home or self-care (01) | LOC: LABSPEC 09-26 08:15 | PROVIDERS: PCP Family Medicine; Visit Provider Surgery | DX: E04.1 Nontoxic single thyroid nodule (principal) | CPT/HCPCS: 88161; 88172; 88305 ==

== ENCOUNTER 2024-11-05 08:35 | Outpatient (RCR) | payer MEDICARE, SELFPAY | END 2024-11-25 23:59 | LOC: NS 08:35 | PROVIDERS: PCP Family Medicine; Referring Provider Nurse Practitioner Family; Visit Provider Nurse Practitioner Family | DX: Z71.3 Dietary counseling and surveillance (principal); E11.9 Type 2 diabetes mellitus without complications | CPT/HCPCS: 97802 ==

== ENCOUNTER → 2024-11-27 | Outpatient (CLI) | payer MEDICARE, SELFPAY ==
--- NOTE | 2024-11-27 15:12 | BI_ITS ---
EXAM: SCRN MAMM (CAD)W/ODELL BILAT DATE: 11/27/2024 CLINICAL HISTORY: F, Age 69 y/o , SCREENING History of grandmother with breast cancer. TECHNIQUE: Procedure Code: [id number] Modality: MG Procedure: SCRN MAMM (CAD)W/ODELL BILAT COMPARISON: Prior exam(s) dated November 24, 2023.. FINDINGS: TISSUE DENSITY: The breasts are heterogeneously dense, which may obscure small masses. Bilateral Breast Mammographic Findings: No significant masses, calcifications or other abnormalities are identified. Stable benign-appearing bilateral axillary lymph nodes. No suspicious masses, areas of developing architectural distortion, or suspicious calcifications. There has been no significant interval change. BI/SCRN MAMM (CAD)W/ODELL BILAT IMPRESSION: Stable screening bilateral mammogram. OVERALL FINAL ASSESSMENT BI-RADS 2: BENIGN RECOMMENDATION: Routine annual follow-up in 1 Year A letter with findings and recommendations will be mailed to the patient. Reading Location: [facility] [place]-
== END | disposition home or self-care (01) ==
PROVIDERS: PCP Family Medicine; Referring Provider Nurse Practitioner Family; Visit Provider Nurse Practitioner Family
DX: Z12.31 Encounter for screening mammogram for malignant neoplasm of breast (principal); Z80.3 Family history of malignant neoplasm of breast
CPT/HCPCS: 77063; 77067

== ENCOUNTER → 2024-12-07 | Outpatient (CLI) | payer MEDICARE, SELFPAY ==
--- NOTE | 2024-12-07 10:30 | ASPIG_PTH ---
PATIENT: VAIBHAV MON[place]NA LOC: [facility] U#:[id number] AGE/SX: 69/F ROOM: RE12/07/[address]: Dr. Shaun Orr MD : 1955 BED: DIS: 12/07/2024 SPEC #: [id number] RECD: 12/07/24 11:01 STATUS: SOLANGE REElvi #: [id number] JORGE: 12/07/24 10:[address]: Shaun Orr DEPT: CYTOLOGY RECD BY: Art Mcgovern ENTERED: 12/07/24 12:02 SP TYPE: ASP OUT OTHR DR: Troy Shukla MD Tissues: A - Thyroid gland, NOS Procedures: FNA Specimen Adequacy Pap Stain (control) Special Stain Group II Diff Quik Stain (control) Cytospin Fluid Cytology Other HEADER OPERATION: Fine needle aspiration of left thyroid nodule PRE-OP DIAGNOSIS: Left thyroid nodule TISSUE SUBMITTED: A- Left thyroid nodule for cytology DIAGNOSIS CYTOLOGY A. Left thyroid nodule, FNA: No malignant cells are identified Benign (consistent with benign follicular nodule) COMMENT The specimen is evaluated at the time of biopsy by Dr. Ramírez. Immediate Evaluation = 1. Mostly blood. 2. Blood and some macrophages. 3. Blood. CYTOLOGY STUDY Slides are reviewed. CYTOLOGY GROSS A. Received is 30 ml of [id number] cytolyt with particles and 6 smears labeled with the patient's name and and designated per the requisition as Left thyroid nodule. Submitted for cytology and cytospin. Mr 12/07/2024 CPT: 48896,37969
== END | disposition home or self-care (01) ==
PROVIDERS: PCP Family Medicine; Referring Provider Surgery; Visit Provider Surgery
DX: E04.1 Nontoxic single thyroid nodule (principal)
CPT/HCPCS: 88108; 88161; 88172; 88305; 88313

== ENCOUNTER → 2024-12-17 | Outpatient (CLI) | payer MEDICARE, SELFPAY ==
[2024-12-21 11:08] LABS: HPV APTIMA, High Risk Negative (Negative)
== END | disposition home or self-care (01) ==
PROVIDERS: PCP Family Medicine; Referring Provider Nurse Practitioner Women's Health; Visit Provider Nurse Practitioner Women's Health
DX: N89.8 Other specified noninflammatory disorders of vagina (principal); Z12.4 Encounter for screening for malignant neoplasm of cervix
CPT/HCPCS: 87070; 87077; 87186; 87205; 87624; 88175; G0145

== ENCOUNTER 2025-01-01 10:39 | Outpatient (CLI) | payer MEDICARE, SELFPAY ==
[2025-01-01 12:25] LABS: Creatinine, Urine (random) 62.40 mg/dL (28.00-217.00); Microalbumin,Random Urine < 12.0 mg/L (<20 mg/L)
== END 2025-01-01 23:59 | disposition home or self-care (01) ==
LOC: LABSPEC 10:40
PROVIDERS: PCP Family Medicine; Visit Provider Family Medicine
DX: E11.9 Type 2 diabetes mellitus without complications (principal)
CPT/HCPCS: 82043; 82570